=== PATIENT | female | born 1985 | race Caucasian/White ===

== ENCOUNTER 2022-09-15 13:31 | Emergency (ER) | payer MEDICAID, SELFPAY ==
[2022-09-15 13:37] VITALS: BP 120/83; PULSE 81; RESP 18; TEMP 35.6; O2SAT 98; BMI 106.7
--- NOTE | 2022-09-15 13:53 | CRLHL7_ITS ---
For Patients: As a result of the Century Cures Act, medical imaging exams and procedure reports are released immediately into your electronic medical record. You may view this report before your referring provider. If you have questions, please contact your health care provider. Indication: Pain Technique: Three views Comparison: None Findings/Impression: Bones: Alignment is normal. No fractures or bone lesions. Joint spaces: Unremarkable. Soft tissues: Enthesopathic spurring distal Achilles tendon. Dictated by Fred Maya MD @ 09/15/2022 3:48:54 PM (Electronically Signed)
--- NOTE | 2022-09-15 14:08 | ED_ITS ---
HPI - General Adult General Chief complaint: Extremity Pain/Injury, Lower Stated complaint: L. foot injury Time Seen by Provider: 09/15/22 13:35 History of Present Illness HPI narrative: Patient is a 37-year-old female who works at [email or web address], she is on her foot a lot and has had foot pain for few weeks. Describes it in the left arch and into her calcaneal area. She denies trauma or injury other than just repetitive weight-bearing. She has had no fevers chills, no trauma to the foot. But has immense discomfort. She has tried some or prescription medications but they have not helped her pain. She has had no history of gout or other issues. She is on gabapentin and methocarbamol. She did take oxycodone and try that and did not seem to help a whole lot. No swelling or warmth erythema. Related Data Home Medications Medication Instructions Recorded Confirmed gabapentin 300 mg capsule 300 mg PO TID 09/15/22 09/15/22 methocarbamol 500 mg tablet 500 mg PO TID 09/15/22 09/15/22 oxycodone 10 mg tablet 10 mg PO TID 09/15/22 09/15/22 Previous Rx's Medication Instructions Recorded ketorolac 10 mg tablet 10 mg PO Q8H PRN pain #10 tabs 09/15/22 Allergies Allergy/AdvReac Type Severity Reaction Status Date / Time No Known Drug Allergies Allergy Verified 09/15/22 13:42 Review of Systems Status of ROS: Reports: 6 or more systems reviewed and unremarkable except as noted in History and below PFSH PFS Social History Smoking Status: Former smoker How often do you have a drink containing alcohol: never AUDIT-C Alcohol total score: 0 Non-prescribed substance use: denies use Exam Narrative: Exam Narrative: Objective: Vital signs unremarkable in general patient apparent distress Left foot exam shows tenderness over the arch of the foot there is no bony tenderness, no warmth, no erythema. Distal CMS intact. Const: Vital Signs, click to edit/add: Vital Signs - 24 hr 09/15/22 13:37 Temperature 96.0 F L Pulse Rate [Left P ulse Oximeter] 81 Respiratory Rate 18 Blood Pressure [Le ft Upper Arm] 120/83 Pulse Oximetry 98 Oxygen Delivery Me thod Room Air Course Vital Signs Vital signs: Initial Vital Signs Temperature 96.0 F L 09/15/22 13:37 Temperature Source Temporal Artery Scan 09/15/22 13:37 Pulse Rate 81 09/15/22 13:37 Pulse Rhythm Regular 09/15/22 13:37 Pulse Strength 3+ Normal 09/15/22 13:37 Respiratory Rate 18 09/15/22 13:37 Blood Pressure 120/83 09/15/22 13:37 Blood Pressure Mean 95 09/15/22 13:37 Blood Pressure Position Sitting 09/15/22 13:37 Pulse Oximetry 98 09/15/22 13:37 Oxygen Delivery Method Room Air 09/15/22 13:37 Vital Signs Temperature 96.0 F L 09/15/22 13:37 Pulse Rate 81 09/15/22 13:37 Respiratory Rate 18 09/15/22 13:37 Blood Pressure 120/83 09/15/22 13:37 Pulse Oximetry 98 09/15/22 13:37 Oxygen Delivery Method Room Air 09/15/22 13:37 Temperature 96.0 F L 09/15/22 13:37 Pulse Rate 81 09/15/22 13:37 Respiratory Rate 18 09/15/22 13:37 Blood Pressure 120/83 09/15/22 13:37 Pulse Oximetry 98 09/15/22 13:37 Oxygen Delivery Method Room Air 09/15/22 13:37 Medical Decision Making MDM Narrative Medical decision making narrative: [age] year white male with persistent arch and heel pain on the left foot for several weeks, it has been worse recently. I would recommend the following at this time would recommend Ariadne be off work for 5 days, and then see primary care about return to work activity and plan Would recommend Toradol 10 mg t.i.d. p.r.n. over the next several days, then may switch to ibuprofen or Naprosyn or Aleve, would also recommend icing the areas that are tender 5 minutes 5 times a day for the next several days. Would recommend nonweightbearing will get crutches. Note for off work written. Return sooner as needed before primary care follow-up. Will also check an x-ray and uric acid to make sure there is no gout and make sure there is no abnormality on x-ray. Addendum 2:47 p.m.: Patient has normal lab studies, at negative x-ray by my read. Crutches off work, follow up with primary care, Toradol as needed, return as needed. Lab Data Labs: Lab Results 09/15/22 Range/Units 14:20 WBC 6.06 (4.50-11.00) K/uL RBC 5.16 (4.00-5.20) m/uL Hgb 13.4 (12.0-16.0) gm/dL Hct 41.3 (33.0-51.0) % MCV 80 (80-100) fL MCH 26 (26-34) pg MCHC 32 (32-36) gm/dL RDW Coeff of Jackeline 12.7 (11.5-15.5) % Plt Count 301 (140-440) K/uL Neut % (Auto) 58.8 (42.0-72.0) % Lymph % (Auto) 34.0 (20-44) % Baxter % (Auto) 5.8 (0.0-11.0) % Eos % (Auto) 0.7 (0.0-7.0) % Baso % (Auto) 0.5 (0.0-3.0) % Neut # (Auto) 3.57 (1.7-7.0) K/uL Lymph # (Auto) 2.06 (0.90-2.90) K/uL Baxter # (Auto) 0.40 (0.00-0.90) K/UL Eos # (Auto) 0.04 (0.00-0.50) K/uL Baso # (Auto) 0.03 (0.00-0.30) K/uL Abs Immat Gran (auto) 0.01 (0.00-0.30) K/uL Imm/Tot Granulo (auto) 0.2 % Uric Acid 6.5 (2.2-8.4) mg/dL C-Reactive Protein 0.8 (0.5-1.0) mg/dL Discharge Plan Discharge Clinical Impression: Acute foot pain Patient Disposition: Home, Self-Care Condition: Stable Additional Instructions: off work x 5 days until rechck with primary. toradol as needed, crutches and non weight bearing, ice to area 5 minutes 5 x day, return to ed as needed. Activity Level: Light activity Discharge Diet: Regular Prescriptions: New ketorolac 10 mg tablet 10 mg PO Q8H PRN (Reason: pain) Qty: 10 0RF No Action oxycodone 10 mg tablet 10 mg PO TID methocarbamol 500 mg tablet 500 mg PO TID gabapentin 300 mg capsule 300 mg PO TID Stand Alone Forms: MyHealth Info Instructions
[2022-09-15] MEDS: KETOROLAC 10 MG TABLET PO (14:14)
[2022-09-15] MEDS: predniSONE 10 MG TABLET 50 MG PO (14:15)
--- OUTSIDE RECORDS SUMMARY | 2022-09-15 14:19 | XMS_ITS | Continuity of Care Document ---
Author Name Unknown Organization [facility] Address [address] [place] [id number] Care Team Providers Care Wedding Decorator Name Role Phone [facility] Unavailable Unav ailable Procedures Procedure Date INJ FORAMEN EPIDURAL L/S MAJOR JOINT OR BURSA INJ WITH ULTRASOUND INJ FORAMEN EPIDURAL L/S INJ FORAMEN EPIDURAL L/S INJ FORAMEN EPIDURAL L/S INJ FORAMEN EPIDURAL L/S Advance Directives Directive Yes / No Effective Date File Name No Information Encounters Encounter Description Practice Location Reason(s) For Visit Diagnoses Date Provider Providers Copied on Encounter [facility], [address] [place] [address], [id number], [facility] No Information [facility]. [address] [place] [address], [id number], [place]. tel:[phone] Referring Provider: Joanie Tobar, [address] [place] [address], [id number]. tel:[phone] [facility], [address] [place] [address], [id number], [facility] No Information [facility]. [address] [place] [address], [id number], [place]. tel:[phone] Referring Provider: Joanie Tobar, [address] [place] [address], [id number]. tel:[phone] [facility], [address] [place] [address], [id number], [facility] No Information [facility]. [address] [place] [address] [place], [id number], . tel:[phone] Referring Provider: Joanie Tobar, [address] [place] [address], [id number]. tel:[phone] [place] [address], [address] [place] [address], [id number], [facility] No Information [facility]. [address] [place], [place] [address]Jos [place], [id number], . tel:[phone] Referring Provider: Joanie Tobar, [address] [place] [address], [id number]. tel:[phone] [facility], [address] [place] [address], [id number], [facility] No Information [facility]. [address] [place], [place] [address] [place], [id number], [place]. tel:[phone] Referring Provider: Arlene Cantrell, [address] [place] [address], [id number]. tel:[phone] [facility], [address] [place] [address], [id number], [facility] No Information [facility]. [address] [place], [place] [address] [place], [id number], [place]. tel:[phone] Referring Provider: Arlene Cantrell, [address] [place] [address], [id number]. tel:[phone] Family History Family Member Type Diagnosis Age At Onset No Information Payers Payer name Insurance type Covered republican ID Alvina ridley(s) [facility] [id number] Social History Type Description Quantity Date Captured Comments Sex Female Smoking Status No Information Chief Complaint And Reason For Visit No Information Reason For Referral Reason For Referral No Information History Of Present Illness Encounter Date Complaint History Of Prese nt Illness No Information Functional Status Date Functional Assessmen t No Information Instructions Date Instruction Additional Infor mation No Information Assessments Type Assessment Date No Information Patient Care Teams Name Effective Dates (start - stop) Status Members No Information
--- OUTSIDE RECORDS SUMMARY | 2022-09-15 14:19 | XMS_ITS | Continuity of Care Document ---
Author Name Unknown Organization [facility] enter Address [address] [place] [phone] Phone Care Team Providers Care Layout Inspector Name Role Phone [facility] Unavailable Unava ilable Procedures Procedure Date MAJOR JOINT OR BURSA INJ WITH ULTRASOUND Advance Directives Directive Yes / No Effective Date File Name No Information Encounters Encounter Description Practice Location Reason(s) For Visit Diagnoses Date Provider Providers Copied on Encounter [facility], [address] [place] [address], [id number], [place] tel:[phone] [facility] No Information 2 [facility]. [address] [place] [address], [id number], [place]. tel:[phone] Referring Provider: Arlene Cantrell, [address] [facility] [place], [address] . tel:[phone] Family History Family Member Type Diagnosis Age At Onset No Information Payers Payer name Insurance type Covered constitution party ID Authoramya khai(s) monie [facility] [id number] Social History Type Description Quantity Date Captured [...]
[2022-09-15 14:26] LABS: Basophils Absolute Auto 0.03 K/uL (0.00-0.30); Basophils Percent Auto 0.5 % (0.0-3.0); Eosinophils Absolute Auto 0.04 K/uL (0.00-0.50); Eosinophils Percent Auto 0.7 % (0.0-7.0); Hematocrit 41.3 % (33.0-51.0); Hemoglobin* 13.4 gm/dL (12.0-16.0); Immature Granulocytes Abs Auto 0.01 K/uL (0.00-0.30); Immature Granulocytes Pct Auto 0.2 %; Lymphocytes Absolute Auto 2.06 K/uL (0.90-2.90); Mean Corpuscular HGB Conc 32 gm/dL (32-36); Mean Corpuscular Hemoglobin 26 pg (26-34); Mean Corpuscular Volume 80 fL (80-100); Monocytes Percent Auto 5.8 % (0.0-11.0); Neutrophils Absolute Auto 3.57 K/uL (1.7-7.0); Neutrophils Percent Auto 58.8 % (42.0-72.0); Platelet Count* 301 K/uL (140-440); RDW Coefficient of Variation % 12.7 % (11.5-15.5); Red Blood Count 5.16 m/uL (4.00-5.20); White Blood Count* 6.06 K/uL (4.50-11.00)
[2022-09-15 14:33] LABS: Slide Review Reflex No
[2022-09-15 14:42] LABS: Uric Acid* 6.5 mg/dL (2.2-8.4)
[2022-09-15 14:45] LABS: C Reactive Protein* 0.8 mg/dL (0.5-1.0)
== END 2022-09-15 14:58 | disposition home or self-care (01) ==
LOC: ED 14:18
PROVIDERS: Emergency Provider Family Medicine
DX: M79.672 Pain in left foot (principal)
CPT/HCPCS: 36415; 73630; 84550; 85025; 86140; 99283; 99284; A9270; J7512

== ENCOUNTER 2022-12-07 12:56 | Emergency (ER) | payer MEDICAID, SELFPAY ==
[2022-12-07 13:40] VITALS: BP 104/82; PULSE 91; RESP 16; TEMP 36.3; O2SAT 98; BMI 43.0
--- NOTE | 2022-12-07 18:14 | ED.GENADULT ---
HPI - General Adult General Time Seen by Provider: 18:14 Date Seen: 12/07/22 Chief complaint: Post Op Complication Stated complaint: heart racing, dizzy, shaky Time Seen by Provider: 12/07/22 18:14 Source: patient and RN notes reviewed Mode of arrival: ambulatory Limitations: no limitations History of Present Illness HPI narrative: Patient is a 37yo female that had a gastric sleeve done at [place] on 11/15/22, discharged on the . She states that she has been throwing up, unable to take much for PO since the procedure. She unfortunately did wait over 5 hours to be seen due to the volume and acuity in the ED. She has had no fever. She states that she is seen at a pain clinic and threw up her oxycodone earlier, she does ask if there is any way to give her some IV medicine. She states that yesterday she had one dark paste-like stool, nothing since then. No significant abdominal pain. When she was in triage, she did c/o feeling heart racing, dizzy, shakey. She thinks that she has lost about 30lbs already. 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 She reportedly did call her surgeon but hasn't heard back. She notes that she may need to get her pills switched to liquid, review with her that I do agree with that but should come from her clinic or surgeon if deemed necessary. Related Data Home Medications Medication Instructions Recorded Confirmed gabapentin 300 mg capsule 300 mg PO TID 09/15/22 12/07/22 methocarbamol 500 mg tablet 500 mg PO TID 09/15/22 12/07/22 oxycodone 10 mg tablet 10 mg PO TID 09/15/22 12/07/22 ondansetron 4 mg disintegrating PO 12/07/22 tablet polyethylene glycol 3350 17 17 g PO DAILY 12/07/22 12/07/22 gram/dose oral powder sennosides 8.6 mg-docusate sodium tab PO 12/07/22 50 mg tablet (Senexon-S) Previous Rx's Medication Instructions Recorded ketorolac 10 mg tablet 10 mg PO Q8H PRN pain #10 tabs 09/15/22 Allergies Allergy/AdvReac Type Severity Reaction Status Date / Time No Known Drug Allergies Allergy Verified 12/07/22 13:39 Review of Systems Status of ROS: Reports: 6 or more systems reviewed and unremarkable except as noted in History and below [facility] Social History Smoking Status: Former smoker Do you use any of these nicotine containing products: None Second hand tobacco smoke exposure: No How often do you have a drink containing alcohol: never AUDIT-C Alcohol total score: 0 Non-prescribed substance use: denies use service: No Exam Const: Vital Signs, click to edit/add: Vital Signs - 24 hr 12/07/22 13:40 12/07/22 18:22 Temperature 97.4 F L Pulse Rate [Pulse Oximeter] 91 Respiratory Rate 16 Blood Pressure [Ri ght Forearm] 104/82 Pulse Oximetry 98 98 Oxygen Delivery Me thod Room Air Tired but alert 37yo female seen in exam 8. Sclera clear, face atraumatic. Lips look slightly dry. Speech normal. Lungs clear to auscultation bilaterally, no tachypnea, no increased work of breathing. CV regular rate and rhythm, no murmur, normal S1 and S2. Abdomen is obese but soft, nontender, no masses noted, port sites are well-healing and without any evidence of infection, certainly no redness or swelling around them, no drainage. Documenting provider has reviewed patient's vital signs: yes Course Course ED Course: Reviewed with her that we will establish an IV, start IV fluids. Will give her 15mg IV toradol and 4mg IV morphine for pain management. We will check CMP and CBC for basic labs. She could have dehydration, electrolyte disturbances. She is close enough from surgery and in the ED setting that other labs like B vitiamins (send out for us anyway) are not appropriate today. Will certainly look at her hemoglobin, watch here for any evidence of GI bleeding. Consider stool hemoccult if needed. Reevaluation(s) Time of Reevaluation #1: 19:54 Reevaluation #1: Patient is re-evaluated, has almost completed 1 L of normal saline. She is complaining of the IV site bothering her. I feel no infiltration but she is complaining of the IV stinging burning through the course into her arm. We reviewed that her potassium his mildly low at 3. I had ordered IV replacement of potassium as well as a small amount of oral. Given that the IV site is bothering her, do not think she is going to tolerate IV potassium. We will have her drink the 25 mEq of the effervescent potassium. She wanted to know if her iron was low. I reviewed with her that I did not drawn iron level, that is not something we would do out of the ER. Her hemoglobin is quite stable at 15.3. I doubt she has any significant GI bleeding as she complained of the dark stool yesterday and has had nothing since. Her hemoglobin is 15.3, I do realize that she is somewhat dehydrated based on labs but there is no clinical evidence of any ongoing GI bleeding. Vital Signs Vital signs: Initial Vital Signs Temperature 97.4 F L 12/07/22 13:40 Temperature Source Temporal Artery Scan 12/07/22 13:40 Pulse Rate 91 12/07/22 13:40 Pulse Rhythm Regular 12/07/22 13:40 Pulse Strength 3+ Normal 12/07/22 13:40 Respiratory Rate 16 12/07/22 13:40 Blood Pressure 104/82 12/07/22 13:40 Blood Pressure Mean 89 12/07/22 13:40 Blood Pressure Position Sitting 12/07/22 13:40 Pulse Oximetry 98 12/07/22 13:40 Oxygen Delivery Method Room Air 12/07/22 13:40 Vital Signs Temperature 97.4 F L 12/07/22 13:40 Pulse Rate 91 12/07/22 13:40 Respiratory Rate 16 12/07/22 13:40 Blood Pressure 104/82 12/07/22 13:40 Pulse Oximetry 98 12/07/22 13:40 Oxygen Delivery Method Room Air 12/07/22 13:40 Temperature 97.4 F L 12/07/22 13:40 Pulse Rate 91 12/07/22 13:40 Respiratory Rate 16 12/07/22 13:40 Blood Pressure 104/82 12/07/22 13:40 Pulse Oximetry 98 12/07/22 18:22 Oxygen Delivery Method Room Air 12/07/22 13:40 Medical Decision Making Lab Data Lab results reviewed: Yes I reviewed the patient's lab results Labs: Lab Results 12/07/22 Range/Units 18:54 WBC 5.97 (4.50-11.00) K/uL RBC 5.86 H (4.00-5.20) m/uL Hgb 15.3 (12.0-16.0) gm/dL Hct 46.4 (33.0-51.0) % MCV 79 L (80-100) fL MCH 26 (26-34) pg MCHC 33 (32-36) gm/dL RDW Coeff of Jackeline 13.8 (11.5-15.5) % Plt Count 269 (140-440) K/uL Neut % (Auto) 59.5 (42.0-72.0) % Lymph % (Auto) 32.8 (20-44) % Avery % (Auto) 6.7 (0.0-11.0) % Eos % (Auto) 0.5 (0.0-7.0) % Baso % (Auto) 0.5 (0.0-3.0) % Neut # (Auto) 3.55 (1.7-7.0) K/uL Lymph # (Auto) 1.96 (0.90-2.90) K/uL Avery # (Auto) 0.40 (0.00-0.90) K/UL Eos # (Auto) 0.03 (0.00-0.50) K/uL Baso # (Auto) 0.03 (0.00-0.30) K/uL Abs Immat Gran (auto) 0.00 (0.00-0.30) K/uL Imm/Tot Granulo (auto) 0.0 % Sodium 140 (135-149) mmol/L Potassium 3.0 L (3.6-5.1) mmol/L Chloride 106 (96-114) mmol/L Carbon Dioxide 16 L (20-32) mmol/L Anion Gap 18 H (7-15) mEq/L BUN 6 (5-24) mg/dL Creatinine 0.6 (0.5-1.5) mg/dL Estimated Creat Clear 110.86 Estimated GFR 118 ml/min Glucose 74 (60-115) mg/dL Lactate 0.9 (0.5-1.9) mmol/L Calcium 9.3 (8.4-10.6) mg/dL Total Bilirubin 0.8 (0.1-1.5) mg/dL AST 90 H (12-35) U/L ALT 118 H (4-35) U/L Alkaline Phosphatase 98 (40-150) U/L Total Protein 8.7 H (6.0-8.3) g/dL Albumin 4.9 (3.3-5.0) g/dL Critical Care Time Critical Care Time Critical Care Time: No Discharge Plan Discharge Clinical Impression: Acute dehydration, S/P gastric sleeve procedure, Acute hypokalemia Patient Disposition: Home, Self-Care Condition: Stable Instructions: Dehydration (ED), Potassium Content of Foods List (ED), Hypokalemia (ED) Additional Instructions: Need to contact your surgeon or your primary care provider for re-evaluation regarding the low potassium an your issue getting her medications in. You very well may need med switched to liquid format. Need to take frequent small sips of liquids, like 1 tsp every 5-10 minutes while awake to help stay hydrated. Drink the other 25 mEq of effervescent potassium tomorrow morning. Your potassium and other appropriate lab status post gastric sleeve should be rechecked per your surgeons recommendations. Continue to follow any postoperative recommendations your surgeon outlined. Prescriptions: No Action sennosides-docusate sodium [Senexon-S] 8.6-50 mg tablet PO polyethylene glycol 3350 17 gram/dose powder 17 g PO DAILY ondansetron 4 mg tablet,disintegrating PO oxycodone 10 mg tablet 10 mg PO TID methocarbamol 500 mg tablet 500 mg PO TID gabapentin 300 mg capsule 300 mg PO TID ketorolac 10 mg tablet 10 mg PO Q8H PRN (Reason: pain) Qty: 10 0RF Follow Up/Referrals: Provider,Not a Local [Primary Care Provider] - Stand Alone Forms: [employer] Info Instructions
[2022-12-07 18:22] VITALS: O2SAT 98
--- OUTSIDE RECORDS SUMMARY | 2022-12-07 18:43 | XMS_ITS | Continuity of Care Document ---
Author Name Unknown Organization [facility] Address [address] [facility] [facility] [place] [address] Phone Care Team Providers [employer] Producer Name Role Phone Kristina Cage DNP Unavailable Unavailable Allergies, Adverse Reactions, Alerts Substance Reaction Status Criticality No Known Allergies Active No Inform ation Medications Medication Instructions Dosage Effective Dates (start - stop) Status Comments oxycodone-acetami nophen 10 mg-325 mg tablet take 1 po TID prn pain - Active GABAPENTIN 300MG CAPSULES TAKE 2 CAPSULES BY MOUTH THREE TIMES DAILY - Active albuterol sulfate HFA 90 mcg/actuation aerosol inhaler Inhale 2 Puffs by mouth every 4 hours if needed for Shortness Of Breath (Cough). - Active gabapentin 100 mg capsule Take 2 Capsules (200 mg) by mouth 2 times daily. - Active omeprazole 20 mg tablet,delayed release Take 1 Tablet (20 mg) by mouth once daily if needed for GI Upset. - Active SUMATRIPTAN (unknown strength) spray 1 spray by intranasal route once; if headache returns, dose may be repeated once after 2 hours, not to exceed 40 mg per day Not Available - Active oxycodone-acetami nophen 10 mg-325 mg tablet take 1 po TID prn pain - No Longer Active Procedures Procedure Date OFFICE VISIT, EST TELEMEDICINE Drug Urine Toxology With Chromatography Drug test def 8-14 classes OFFICE/OUTPATIENT VISIT, EST OFFICE VISIT, EST TELEMEDICINE INJ FORAMEN EPIDURAL L/S LEFT OFFICE VISIT, EST TELEMEDICINE OFFICE VISIT, EST TELEMEDICINE RT Major Joint Or Bursa Inj With Ultraso und OFFICE/OUTPATIENT VISIT, EST OFFICE VISIT, EST TELEMEDICINE Foll-up eval q3mo opiod tx OFFICE VISIT, EST TELEMEDICINE Drug Urine Toxology With Chromatography Drug test def 8-14 classes Foll-up eval q3mo opiod tx OFFICE/OUTPATIENT VISIT, EST Foll-up eval q3mo opiod tx OFFICE VISIT, EST TELEMEDICINE OFFICE VISIT, EST TELEMEDICINE Foll-up eval q3mo opiod tx Foll-up eval q3mo opiod tx OFFICE VISIT, EST TELEMEDICINE Foll-up eval q3mo opiod tx OFFICE/OUTPATIENT VISIT, EST Foll-up eval q3mo opiod tx OFFICE VISIT, EST TELEMEDICINE INJ FORAMEN EPIDURAL L/S LEFT Foll-up eval q3mo opiod tx OFFICE VISIT, EST TELEMEDICINE Foll-up eval q3mo opiod tx OFFICE/OUTPATIENT VISIT, EST Drug Urine Toxology With Chromatography Drug test def 8-14 classes No Charge For Visit Per Prov Foll-up eval q3mo opiod tx PREVENTIVE COUNSELING, INDIV OFFICE VISIT, EST TELEMEDICINE Foll-up eval q3mo opiod tx OFFICE VISIT, EST TELEMEDICINE RT Major Joint Or Bursa Inj With Ultraso und Foll-up eval q3mo opiod tx OFFICE VISIT, EST TELEMEDICINE OFFICE/OUTPATIENT VISIT, EST Foll-up eval q3mo opiod tx Foll-up eval q3mo opiod tx OFFICE VISIT, EST TELEMEDICINE Foll-up eval q3mo opiod tx OFFICE VISIT, EST TELEMEDICINE Foll-up eval q3mo opiod tx OFFICE VISIT, EST TELEMEDICINE Drug Urine Toxology With Chromatography Drug test def 8-14 classes Foll-up eval q3mo opiod tx OFFICE VISIT, EST TELEMEDICINE Foll-up eval q3mo opiod tx OFFICE VISIT, EST TELEMEDICINE 20 INJ FORAMEN EPIDURAL L/S LEFT 0 Foll-up eval q3mo opiod tx OFFICE VISIT, EST TELEMEDICINE 20 Foll-up eval q3mo opiod tx OFFICE VISIT, EST TELEMEDICINE 20 Foll-up eval q3mo opiod tx OFFICE VISIT, EST TELEMEDICINE 20 Foll-up eval q3mo opiod tx OFFICE VISIT, EST TELEMEDICINE 20 Foll-up eval q3mo opiod tx OFFICE VISIT, EST TELEMEDICINE 20 INJ FORAMEN EPIDURAL L/S LEFT 0 Drug test def 15-21 classes Drug Urine Toxology With Chromatography OFFICE/OUTPATIENT VISIT, EST Foll-up eval q3mo opiod tx OFFICE/OUTPATIENT VISIT, EST Foll-up eval q3mo opiod tx INJ FORAMEN EPIDURAL L/S LEFT 9 OFFICE/OUTPATIENT VISIT, EST OFFICE/OUTPATIENT VISIT, EST Drug test def 22+ classes Drug Urine Toxology With Chromatography OFFICE/OUTPATIENT VISIT, EST OFFICE/OUTPATIENT VISIT, EST OFFICE/OUTPATIENT VISIT, EST INJ FORAMEN EPIDURAL L/S LEFT 9 FLUOROGUIDE FOR SPINE INJECTION 019 OFFICE/OUTPATIENT VISIT, EST Drug test def 22+ classes Drug Urine Toxology With Chromatography OFFICE/OUTPATIENT VISIT, EST OFFICE/OUTPATIENT VISIT, EST OFFICE/OUTPATIENT VISIT, EST OFFICE/OUTPATIENT VISIT, EST Drug test def 22+ classes Drug Urine Toxology With Chromatography Drug test def 22+ classes Drug Urine Toxology With Chromatography OFFICE/OUTPATIENT VISIT, EST OFFICE/OUTPATIENT VISIT, EST INJ FORAMEN EPIDURAL L/S LEFT 8 FLUOROGUIDE FOR SPINE INJECTION 018 OFFICE/OUTPATIENT VISIT, EST OFFICE/OUTPATIENT VISIT, EST OFFICE/OUTPATIENT VISIT, EST OFFICE/OUTPATIENT VISIT, EST OFFICE/OUTPATIENT VISIT, EST INJ FORAMEN EPIDURAL L/S LEFT 7 Surgical trays FLUOROGUIDE FOR SPINE INJECT Omnipaque 240 50ml Omnipaque 240 Per 50ml Lidocaine injection Dexamethasone sodium phos OFFICE/OUTPATIENT VISIT, EST OFFICE/OUTPATIENT VISIT, EST OFFICE/OUTPATIENT VISIT, EST OFFICE/OUTPATIENT VISIT, EST INJ FORAMEN EPIDURAL L/S LEFT 6 Surgical trays FLUOROGUIDE FOR SPINE INJECT Lidocaine injection Dexamethasone sodium phos Omnipaque 240 50ml Omnipaque 240 Per 50ml OFFICE/OUTPATIENT VISIT, EST OFFICE/OUTPATIENT VISIT, EST OFFICE/OUTPATIENT VISIT, EST OFFICE/OUTPATIENT VISIT, EST INJ FORAMEN EPIDURAL L/S LEFT 5 Surgical trays FLUOROGUIDE FOR SPINE INJECT Dexamethasone sodium phos Lidocaine injection Omnipaque 240 50ml Omnipaque 240 Per 50ml OFFICE/OUTPATIENT VISIT, EST OFFICE/OUTPATIENT VISIT, EST OFFICE/OUTPATIENT VISIT, EST INJ FORAMEN EPIDURAL L/S LEFT 5 Surgical trays FLUOROGUIDE FOR SPINE INJECT Lidocaine injection Dexamethasone sodium phos Omnipaque 240 50ml Omnipaque 240 Per 50ml OFFICE/OUTPATIENT VISIT, EST OFFICE/OUTPATIENT VISIT, EST OFFICE/OUTPATIENT VISIT, EST OFFICE/OUTPATIENT VISIT, EST OFFICE/OUTPATIENT VISIT, EST OFFICE/OUTPATIENT VISIT, EST INJ FORAMEN EPIDURAL L/S LEFT 4 Surgical trays FLUOROGUIDE FOR SPINE INJECT Dexamethasone sodium phos Lidocaine injection Omnipaque 240 50ml Omnipaque 240 Per 50ml OFFICE/OUTPATIENT VISIT, EST OFFICE/OUTPATIENT VISIT, EST OFFICE/OUTPATIENT VISIT, EST OFFICE/OUTPATIENT VISIT, EST OFFICE/OUTPATIENT VISIT, EST OFFICE/OUTPATIENT VISIT, EST OFFICE/OUTPATIENT VISIT, EST OFFICE/OUTPATIENT VISIT, EST INJ FORAMEN EPIDURAL L/S LEFT 4 Surgical trays FLUOROGUIDE FOR SPINE INJECT Lidocaine injection Dexamethasone sodium phos Omnipaque 240 50ml Omnipaque 240 Per 50ml OFFICE/OUTPATIENT VISIT, EST INJ FORAMEN EPIDURAL L/S LEFT 4 Surgical trays FLUOROGUIDE FOR SPINE INJECT Lidocaine injection Dexamethasone sodium phos Omnipaque 240 50ml Omnipaque 240 Per 50ml OFFICE/OUTPATIENT VISIT, EST OFFICE/OUTPATIENT VISIT, EST OFFICE/OUTPATIENT VISIT, EST OFFICE/OUTPATIENT VISIT, EST OFFICE CONSULTATION Advance Directives Directive Yes / No Effective Date File Name No Information Encounters Encounter Description Practice Location Reason(s) For Visit Diagnoses Date Provider Providers Copied on Encounter OFFICE VISIT, EST TELEMEDICINE [facility], [address], [place], [id number] , [place] tel: [phone] [facility] [place] Back Pain (chief complaint) DepressionAnxiety Chronic migraine without aura, intractable, without status migrainosusCarpal tunnel syndrome, right upper limbCarpal tunnel syndrome, left upper limbPain in right kneePain in left kneeOther intervertebral disc degeneration, lumbar regionRadiculopat hy, lumbar regionCervicalgia terminal gauger supervisor (current) use of opiate analgesicOther chronic pain Oct-0 3 Niles Kristina. [address], [place], [id number] , [place]. tel: [phone] [facility], [address] [facility] [place], [id number] , [place] tel: [phone] [facility] [place] No Information Oct-0 3 Niles Kristina. [address] [place], [id number] , [place]. tel: [phone] OFFICE/OUTPAT IENT VISIT, EST [facility], [address] [facility] [place], [id number] , [place] tel: [phone] [facility] [place] Back Pain (chief complaint) DepressionAnxiety Chronic migraine without aura, intractable, without status migrainosusCarpal tunnel syndrome, right upper limbCarpal tunnel syndrome, left upper limbPain in right kneePain in left kneeOther intervertebral disc degeneration, lumbar regionRadiculopat hy, lumbar regionCervicalgia terminal gauger supervisor (current) use of opiate analgesicEncounte r for therapeutic drug level monitoring Sep-0 3 Niles Acevedo. [address] [place] [place], [id number] , [place]. tel: [phone] Referring Provider: [address] [facility], [address]. tel:[phone] OFFICE VISIT, EST TELEMEDICINE [facility], [address] [place] [address] [place], [id number] , [place] tel: [phone] [facility] [place] Back Pain (chief complaint) Pain in left kneeDepressionAnx ietyChronic migraine without aura, intractable, without status migrainosusCarpal tunnel syndrome, right upper limbCarpal tunnel syndrome, left upper limbPain in right kneeOther intervertebral disc degeneration, lumbar regionRadiculopat hy, lumbar regionCervicalgia long-term (current) use of opiate analgesic Sep- 3 Niles Acevedo. [address] [facility] Nan [place], [id number] , [place]. tel: [phone] [facility], [address] [place] [address] [place], [id number] , [place] tel: [phone] [facility] Radiculopathy, lumbar region 3 Ekaterina Nair. [address] [facility] Nan [place], [id number] , [place]. tel:[phone] Referring Provider: Kristina Cage, [address] [place] [address] [place], [address] . 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 [address] [place], [id number] , [place]. tel:[phone] Referring Provider: Kam Almeida, [address], [address] . tel:[phone] OFFICE VISIT, EST TELEMEDICINE [facility], [address] [place], [id number] , [place] tel:[phone] [facility] [place] Back Pain (chief complaint) Chronic migraine without aura, intractable, without status migrainosusRadicu lopathy, lumbar regionDepressionA nxietyCarpal tunnel syndrome, right upper limbCarpal tunnel syndrome, left upper limbPain in left kneePain in right kneeOther intervertebral disc degeneration, lumbar regionLong term (current) use of opiate analgesicCervical claire Sam-0 3 Niles Acevedo. [address] [place], [id number] , [place]. tel:[phone] Referring Provider: Kam Almeida, [address] [place], [address] . tel:[phone] [facility], [address] [place], [id number] , [place] [phone] [facility] Pain in right knee June-0 3 Tobar Joanie. [address] [place], [id number] , [place]. tel:[phone] Referring Provider: Kristina Cage, [address] [place], [address] . 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 [address] [place], [id number] , [place]. tel: [phone] Referring Provider: Kam Almeida, [address] [place], [place] [address]Jos [place], [address] . tel:[phone] [facility], [address] [place], [place] [address]Ad[place], [id number] , [place] tel: [phone] [facility] [place] No Information 3 Aron Humphrey. [address] [place], [id number] , [place]. tel: [phone] OFFICE VISIT, EST TELEMEDICINE [facility], [address] [place] [place], [id number] , [place] tel: [phone] [facility] [place] Back Pain (chief complaint) DepressionAnxiety Chronic migraine without aura, intractable, without status migrainosusCarpal tunnel syndrome, right upper limbCarpal tunnel syndrome, left upper limbPain in left kneePain in right kneeOther intervertebral disc degeneration, lumbar regionRadiculopat hy, lumbar regionCervicalgia long-term (current) use of opiate analgesic 3 Niles Kristina. [address] [place], [id number] , [place]. tel:[phone] Referring Provider: Kam Almeida, [address] [place], [place] [address]ms [place], [address] . tel:[phone] [facility], [address] [place], [place] [address]Ad[place], [id number] , [place] tel: [phone] [facility] [place] No Information 3 Niles Kristina. [address] [place], [id number] , [place]. tel: [phone] OFFICE VISIT, EST TELEMEDICINE [facility], [address] [place], [id number] , [place] tel: [phone] [facility] [place] low back pain (chief complaint) Other intervertebral disc degeneration, lumbar regionRadiculopat hy, lumbar regionCervicalgia Chronic migraine without aura, intractable, without status migrainosusCarpal tunnel syndrome, right upper limbCarpal tunnel syndrome, left upper limbPain in right kneePain in left kneeDepressionAnx ietyLong term (current) use of opiate analgesic Apr-0 3 Niles Acevedo. [address] [place], [id number] , [place]. tel: [phone] [facility], [address] [place], [place] [address]Ad[place], [id number] , [place] tel: [phone] [facility] [place] No Information 3 Niles Acevedo. [address] [place], [id number] , [place]. tel: [phone] OFFICE/OUTPAT IENT VISIT, [facility], [address] [place], [place] [address]Ad[place], [id number] , [place] tel: [phone] [facility] Back Pain (chief complaint) Other intervertebral disc degeneration, lumbar regionMyalgia, other siteDepressionAnx ietyChronic migraine without aura, intractable, without status migrainosusCarpal tunnel syndrome, right upper limbCarpal tunnel syndrome, left upper limbPain in left kneePain in right kneeRadiculopathy , lumbar regionLong term (current) use of opiate analgesicCervical giaEncounter for therapeutic drug level monitoring 3 Niles Acevedo. [facility] Nan [place], [id number] , [place]. tel: [phone] Referring Provider: Kristina Cage, [address] [place], [address] . tel:[phone] OFFICE VISIT, EST [facility], [address] [place], [id number] , [place] tel: [phone] [facility] [place] Back Pain (chief complaint) DepressionAnxiety Chronic migraine without aura, intractable, without status migrainosusRadicu lopathy, lumbar regionOther intervertebral disc degeneration, lumbar regionCarpal tunnel syndrome, right upper limbMyalgia, other siteCarpal tunnel syndrome, left upper limbPain in left kneePain in right kneeLong term (current) use of opiate analgesic 3 Niles Kristina. [address] [place], [id number] , [place]. tel: [phone] OFFICE VISIT, [facility], [address] [place] [address] Adri[place], [id number] , [place] tel: [phone] [facility] [place] Widespread pain (chief complaint) DepressionAnxiety Chronic migraine without aura, intractable, without status migrainosusCarpal tunnel syndrome, right upper limbCarpal tunnel syndrome, left upper limbPain in right kneePain in left kneeOther intervertebral disc degeneration, lumbar regionLong term (current) use of opiate analgesic 2 Aron Humphrey. [address] [place] [address] Nan [place], [id number] , [place]. tel: [phone] OFFICE VISIT, [facility], [address] [place], [place] [address]Ad[place], [id number] , [place] tel: [phone] [facility] [place] Back Pain (chief complaint) DepressionAnxiety Chronic migraine without aura, intractable, without status migrainosusCarpal tunnel syndrome, right upper limbCarpal tunnel syndrome, left upper limbPain in left kneePain in right kneeOther intervertebral disc degeneration, lumbar regionRadiculopat hy, lumbar regionMyalgia, other siteLong term (current) use of opiate analgesic 2 Niles Acevedo. [address] [place], [id number] , [place]. tel: [phone] Referring Provider: Kam Almeida, [address] [place] [address] [place], [address] . tel:[phone] OFFICE/OUTPAT IENT VISIT, [facility], [address] [facility] [place], [id number] , [place] tel: [phone] [facility] [place] Back Pain (chief complaint) Carpal tunnel syndrome, right upper limbCarpal tunnel syndrome, left upper limbPain in left kneePain in right kneeOther intervertebral disc degeneration, lumbar regionMyalgia, other siteDepressionAnx ietyChronic migraine without aura, intractable, without status migrainosusLong term (current) use of opiate analgesicRadiculo joon, lumbar region 2 Niles Kristina. [address] [place], [id number] , [place]. tel: [phone] Referring Provider: Kam Almeida, [address] [place] [address] [place], [address] . tel:[phone] [facility], [address] [place] [address] Adrianna [place], [id number] , [place] tel: [phone] [facility] [place] No Information 2 Aron Humphrey. [address] [place] [address] Nan [place], [id number] , [place]. tel: [phone] OFFICE VISIT, [facility] TELEMEDICINE [facility], [address] [place], [id number] , [place] tel: [phone] [facility] [place] Back Pain (chief complaint) Pain in right kneeDepressionAnx ietyChronic migraine without aura, intractable, without status migrainosusCarpal tunnel syndrome, right upper limbCarpal tunnel syndrome, left upper limbPain in left kneeOther intervertebral disc degeneration, lumbar regionRadiculopat hy, lumbar regionLong term (current) use of opiate analgesicMyalgia, other site Sep-0 2 Niles Kristina. [address] [place], [id number] , [place]. tel: [phone] Referring Provider: Kam Almeida, [address] [place] [address] Arm[place]a [place], [address] . tel:[phone] [facility], [address] [place] [address] Adri[place], [id number] , [place] tel: [phone] [facility] Radiculopathy, lumbar region 2 Ekaterina Nair. [address] [place], [id number] , [place]. tel:[phone] Referring Provider: Kristina Cage, [address] [place], [address] . tel:[phone] OFFICE VISIT, [facility] TELEMEDICINE [facility], [address] [place], [id number] , [place] tel: [phone] [facility] [place] Back Pain (chief complaint) Chronic migraine without aura, intractable, without status migrainosusDepres sionAnxietyCarpal tunnel syndrome, left upper limbCarpal tunnel syndrome, right upper limbPain in right kneePain in left kneeOther intervertebral disc degeneration, lumbar regionRadiculopat hy, lumbar regionLong term (current) use of opiate analgesic 2 Niles Acevedo. [address] [place], [id number] , [place]. tel:[phone] Referring Provider: Kam Almeida, [address] [place], [place] [address]ms Roberts [place], [address] . tel:[phone] OFFICE/OUTPAT IENT VISIT, [facility], [address] [place], [id number] , [place] tel: [phone] [facility] [place] Back Pain (chief complaint) Pain in left kneeDepressionAnx ietyChronic migraine without aura, intractable, without status migrainosusCarpal tunnel syndrome, left upper limbCarpal tunnel syndrome, right upper limbPain in right kneeOther intervertebral disc degeneration, lumbar regionRadiculopat hy, lumbar regionLong term (current) use of opiate analgesicEncounte r for therapeutic drug level monitoring 2 Niles Acevedo. [address] [place], [id number] , [place]. tel:[phone] Referring Provider: Kam Almeida, [address] [place], [place] [address]ms [place] Jessica[place], [address] . tel:[phone] [facility], [address] [place] [address] Adri[place], [id number] , [place] tel: [phone] [facility] [place] No Information 2 Niles Kristina. [address] [place], [id number] , [place]. tel: [phone] Referring Provider: Kam Almeida, [address] [place] [address] [place], [address] . tel:[phone] [facility], [address] [place] [address] [place], [id number] , [place] tel: [phone] [facility] [place] No Information 2 Niles Kristina. [facility] [place], [id number] , [place]. tel: [phone] Referring Provider: Kam Almeida, [address] [place] [address] [place], [address] . tel:[phone] PREVENTIVE COUNSELING, INDIV [facility], [address] [place], [place] [address]Ad[place], [id number] , [place] tel: [phone] [facility] Back Pain (chief complaint) Chronic migraine without aura, intractable, without status migrainosusAnxiet yDepressionCarpal tunnel syndrome, left upper limbCarpal tunnel syndrome, right upper limbPain in left kneePain in right kneeOther intervertebral disc degeneration, lumbar regionRadiculopat hy, lumbar regionLong term (current) use of opiate analgesicEncounte r for screening, unspecified 2 Niles Kristina. [address] [place] [address] Nan [place], [id number] , [place]. tel: [phone] OFFICE VISIT, EST TELEMEDICINE [facility], [address] [place], [place] [address]Ad[place]anna [place], [id number] , [place] tel: [phone] [facility] Back Pain (chief complaint) DepressionAnxiety Chronic migraine without aura, intractable, without status migrainosusCarpal tunnel syndrome, left upper limbCarpal tunnel syndrome, right upper limbPain in right kneePain in left kneeOther intervertebral disc degeneration, lumbar regionRadiculopat hy, lumbar regionLong term (current) use of opiate analgesic 2 Niles Acevedo. [address] [place], [id number] , [place]. tel: [phone] [facility], [address] [place], [id number] , [place] tel: [phone] [facility] Pain in right knee 2 Óscar Jacobs. [address] [place], [id number] , [place]. tel: [phone] Referring Provider: Kristina Cage, [address] [place], [address] . tel:[phone] OFFICE VISIT, [facility], [address] [place], [id number] , [place] tel: [phone] [facility] [place] Back Pain (chief complaint) DepressionAnxiety Chronic migraine without aura, intractable, without status migrainosusCarpal tunnel syndrome, left upper limbCarpal tunnel syndrome, right upper limbPain in left kneePain in right kneeOther intervertebral disc degeneration, lumbar regionRadiculopat hy, lumbar regionLong term (current) use of opiate analgesic 2 Niles Acevedo. [address] [place], [id number] , [place]. tel: [phone] OFFICE/OUTPAT IENT VISIT, [facility], [address] [place], [id number] , [place] tel: [phone] [facility] Back Pain (chief complaint) Chronic migraine without aura, intractable, without status migrainosusOther intervertebral disc degeneration, lumbar regionCarpal tunnel syndrome, left upper limbCarpal tunnel syndrome, right upper limbPain in left kneePain in right kneeAnxietyDepres sionLong term (current) use of opiate analgesicRadiculo joon, lumbar regionEncounter for therapeutic drug level monitoring 2 Niles Acevedo. [address] [place], [id number] , [place]. tel:[phone] Referring Provider: Kam Almeida, [address] [place], [place] [address], [address] . tel:[phone] OFFICE VISIT, [facility], [address] [place], [id number] , [place] tel: [phone] [facility] [place] Back Pain (chief complaint) Chronic migraine without aura, intractable, without status migrainosusOther intervertebral disc degeneration, lumbar regionCarpal tunnel syndrome, left upper limbCarpal tunnel syndrome, right upper limbPain in left kneePain in right kneeAnxietyDepres sionLong term (current) use of opiate analgesic Mar-3 0-202 1 Niles Kristina. [address] [place], [id number] , [place]. tel:[phone] Referring Provider: Kam Almeida, [address] [place] [address] Jos Roberts [place], [address] . tel:[phone] OFFICE VISIT, [facility], [address] [place], [place] [address]Adrianna [place], [id number] , [place] tel: [phone] [facility] [place] Back Pain (chief complaint) Chronic migraine without aura, intractable, without status migrainosusOther intervertebral disc degeneration, lumbar regionCarpal tunnel syndrome, left upper limbCarpal tunnel syndrome, right upper limbPain in left kneePain in right kneeAnxietyDepres sionLong term (current) use of opiate analgesic Mar-0 5- 1 Niles Kristina. [address] [place], [id number] , [place]. tel:[phone] Referring Provider: Kam Almeida, [address] [place] [address] [place], [address] . tel:[phone] OFFICE VISIT, [facility], [address] [place], [place] [address]Adrianna [place], [id number] , [place] tel: [phone] [facility] [place] Back Pain (chief complaint) Chronic migraine without aura, intractable, without status migrainosusOther intervertebral disc degeneration, lumbar regionCarpal tunnel syndrome, left upper limbCarpal tunnel syndrome, right upper limbPain in left kneePain in right kneeAnxietyDepres sionLong term (current) use of opiate analgesic 1 Niles Kristina. [address] [place], [id number] , [place]. tel: [phone] Referring Provider: Kam Almeida, [address] [place], [place] [address]ms Roberts N[place]hang [place], [address] . tel:[phone] [facility], [address] [place], [place] [address]Adrianna [place], [id number] , [place] tel: [phone] [facility] No Information 1 Niles Kristina. [address] [place], [place] [address]Nan [place], [id number] , [place]. tel: [phone] Referring Provider: Kam Almeida, [address] [place], [place] [address]ms Roberts [place]hang [place], [address] . tel:[phone] OFFICE VISIT, EST TELEMEDICINE [facility], [address] [place], [place] [address]Adrianna [place], [id number] , [place] tel: [phone] [facility] Back Pain (chief complaint) Chronic migraine without aura, intractable, without status migrainosusOther intervertebral disc degeneration, lumbar regionCarpal tunnel syndrome, left upper limbCarpal tunnel syndrome, right upper limbPain in left kneePain in right kneeAnxietyDepres sionLong term (current) use of opiate analgesic 1 Niles Kristina. [facility] [address] [place], [id number] , [place]. tel: [phone] Referring Provider: Kam Almeida, [address] [place], [place] [address]ms [place], [address] . tel:[phone] OFFICE VISIT, EST TELEMEDICINE [facility], [address] [place], [place] [address]Adrianna [place], [id number] , [place] tel: [phone] [facility] Back Pain (chief complaint) Chronic migraine without aura, intractable, without status migrainosusOther intervertebral disc degeneration, lumbar regionCarpal tunnel syndrome, left upper limbCarpal tunnel syndrome, right upper limbPain in left kneePain in right kneeAnxietyDepres sionLong term (current) use of opiate analgesic Dec-0 8- 0 Niles Kristina. [address] [place], [id number] , [place]. tel: [phone] Referring Provider: Kam Almeida, [address] [place], [place] [address], [address] . tel:[phone] [facility], [address] [place], [place] [address]Ad[place]anna [place], [id number] , [place] tel: [phone] [facility] Other intervertebral disc degeneration, lumbar region Nov- 0- 0 Ekaterina Nair. [address] [place] [place], [id number] , [place]. tel: [phone] Referring Provider: Joanie Tobar, [address] [place] [address] [place], [address] . tel:[phone] OFFICE VISIT, EST TELEMEDICINE [facility], [address] [place], [place] [address]Adrianna [place], [id number] , [place] tel: [phone] [facility] [place] Back Pain (chief complaint) Chronic migraine without aura, intractable, without status migrainosusOther intervertebral disc degeneration, lumbar regionCarpal tunnel syndrome, left upper limbCarpal tunnel syndrome, right upper limbPain in left kneePain in right kneeAnxietyDepres sionLong term (current) use of opiate analgesic Nov-0 9 0 Niles Kristina. [address] [place], [place] [address]Nan [place], [id number] , [place]. tel: [phone] Referring Provider: Kam Almeida, [address] [place] [address] [place], [address] . tel:[phone] OFFICE VISIT, EST TELEMEDICINE [facility], [address] [place], [place] [address]Adrianna [place], [id number] , [place] tel: [phone] [facility] [place] Back Pain (chief complaint) Chronic migraine without aura, intractable, without status migrainosusOther intervertebral disc degeneration, lumbar regionCarpal tunnel syndrome, left upper limbCarpal tunnel syndrome, right upper limbPain in left kneePain in right kneeAnxietyDepres sionLong term (current) use of opiate analgesic Oct-0 0 Niles Kristina. [address] [place], [id number] , [place]. tel: [phone] Referring Provider: Kam Almeida, [address] [place], [address] . tel:[phone] OFFICE VISIT, EST TELEMEDICINE [facility], [address] [place], [id number] , [place] tel: [phone] [facility] [place] Back Pain (chief complaint) Other intervertebral disc degeneration, lumbar regionCarpal tunnel syndrome, left upper limbCarpal tunnel syndrome, right upper limbPain in left kneePain in right kneeAnxietyDepres sionLong term (current) use of opiate analgesic Sep-0 0 Niles Kristina. [address] [place], [id number] , [place]. tel: [phone] Referring Provider: Kam Almeida, [address] [place], [address] . tel:[phone] OFFICE VISIT, EST TELEMEDICINE [facility], [address] [place], [id number] , [place] tel: [phone] [facility] [place] Back Pain (chief complaint) Other intervertebral disc degeneration, lumbar regionCarpal tunnel syndrome, left upper limbCarpal tunnel syndrome, right upper limbLong term (current) use of opiate analgesicPain in left kneePain in right kneeAnxietyDepres isiah Sep- 0 Niles Kristina. [address] [place], [id number] , [place]. tel: [phone] Referring Provider: Kam Almeida, [address] [place], [address] . tel:[phone] OFFICE VISIT, EST TELEMEDICINE [facility], [address] [place], [id number] , [place] tel: [phone] [facility] Back Pain (chief complaint) Other intervertebral disc degeneration, lumbar regionCarpal tunnel syndrome, left upper limbCarpal tunnel syndrome, right upper limbLong term (current) use of opiate analgesic May- 0 Niles Kristina. [address] [place], [id number] , [place]. tel: [phone] Referring Provider: Kam Almeida, [address] [place] [address] [place], [address] . tel:[phone] [facility], [address] [place] [address] [address] [place], [id number] , [place] tel: [phone] [facility] [place] Other intervertebral disc degeneration, lumbar region Mar- 0 Óscar Jacobs. [address] [place], [id number] , [place]. tel: [phone] OFFICE/OUTPAT IENT VISIT, [facility], [address] [place], [place] [address]Adrianna [place], [id number] , [place] tel: [phone] [facility] Back Pain (chief complaint) Carpal tunnel syndrome, left upper limbCarpal tunnel syndrome, right upper limbPain in left kneeOther intervertebral disc degeneration, lumbar regionLong term (current) use of opiate analgesic 0 Niles Kristina. [facility] [address] [place], [id number] , [place]. tel: [phone] OFFICE/OUTPAT IENT VISIT, [facility], [address] [place], [place] [address]Adrianna [place], [id number] , [place] tel: [phone] [facility] [place] Back Pain (chief complaint) long-term (current) use of opiate analgesicOther intervertebral disc degeneration, lumbar regionPain in left kneeCarpal tunnel syndrome, left upper limbCarpal tunnel syndrome, right upper limb Dec- 9 Niles Kristina. [facility] [address] [place], [id number] , [place]. tel: [phone] [facility], [address] [place], [place] [address]Adrianna [place], [id number] , [place] tel: [phone] [facility] [place] Other intervertebral disc degeneration, lumbar region 9 Óscar Jacobs. [address] [place], [id number] , [place]. tel: [phone] OFFICE/OUTPAT IENT VISIT, [facility], [address] [place], [id number] , [place] tel: [phone] [facility] [place] Back Pain (chief complaint) terminal gauger supervisor (current) use of opiate analgesicOther intervertebral disc degeneration, lumbar regionPain in left knee 9 Niles Kristina. [address] [place], [id number] , [place]. tel: [phone] [facility], [address] [place], [id number] , [place] tel: [phone] [facility] [place] Other intervertebral disc degeneration, lumbar region 9 Niles Kristina. [address] [place], [id number] , [place]. tel: [phone] OFFICE/OUTPAT IENT VISIT, [facility], [address] [place], [id number] , [place] tel: [phone] [facility] [place] Back Pain (chief complaint) Other intervertebral disc degeneration, lumbar regionLow back painPain in left kneeLong term (current) use of opiate analgesic 0 9 Niles Kristina. [address] [place], [id number] , [place]. tel: [phone] OFFICE/OUTPAT IENT VISIT, [facility], [address] [place], [id number] , [place] tel: [phone] [facility] [place] Back Pain (chief complaint) Pain in left kneeOther intervertebral disc degeneration, lumbar regionLow back painLong term (current) use of opiate analgesic Aug- 2- 9 Niles Kristina. [address] [place], [id number] , [place]. tel: [phone] OFFICE/OUTPAT IENT VISIT, [facility], [address] [place], [id number] , [place] tel: [phone] [facility] [place] Back Pain (chief complaint) terminal gauger supervisor (current) use of opiate analgesicPain in left kneeOther intervertebral disc degeneration, lumbar regionLow back pain May-0 3-201 9 Niles Kristina. [address] [place], [id number] , [place]. tel: [phone] OFFICE/OUTPAT IENT VISIT, EST [facility], [address] [place], [id number] , [place] tel: [phone] [facility] [place] Back Pain (chief complaint) Low back painOther intervertebral disc degeneration, lumbar regionLong term (current) use of opiate analgesicPain in left knee Apr-0 4-[address] [facility], [address] [facility] [address], [place], [address], [place]. tel: [phone] [facility], [address] [place] [address] [address] [place], [id number] , [place] tel: [phone] [facility] Other intervertebral disc degeneration, lumbosacral region Mar-0 8-201 9 Óscar Jacobs. [address] [place], [id number] , [place]. tel: [phone] OFFICE/OUTPAT IENT VISIT, EST [facility], [address] [place], [id number] , [place] tel: [phone] [facility] [place] low back pain (chief complaint) Other intervertebral disc degeneration, lumbar regionLow back painLong term (current) use of opiate analgesicEncounte r for therapeutic drug level monitoringOther intervertebral disc degeneration, lumbosacral region Feb-0 4-201 9 Niles Kristina. [address] [place], [id number] , [place]. tel: [phone] OFFICE/OUTPAT IENT VISIT, EST [facility], [address] [place], [id number] , [place] tel: [phone] [facility] [place] low back pain (chief complaint) Other intervertebral disc degeneration, lumbar regionLow back pain Dec-0 6-201 8 Niles Kristina. [address] [place], [id number] , [place]. tel: [phone] OFFICE/OUTPAT IENT VISIT, [facility], [address] [place], [id number] , [place] tel: [phone] [facility] [place] low back pain (chief complaint) Other intervertebral disc degeneration, lumbar regionOther intervertebral disc degeneration, lumbosacral regionLow back pain Oct-0 5-201 8 Niles Kristina. [address] [place], [id number] , [place]. tel: [phone] OFFICE/OUTPAT IENT VISIT, [facility], [address] [place], [id number] , [place] tel: [phone] [facility] [place] low back pain (chief complaint) Other intervertebral disc degeneration, lumbosacral regionCervicalgia Low back painPain in left knee Sep-0 8 Niles Kristina. [address] [place], [address] , [place]. tel: [phone] OFFICE/OUTPAT IENT VISIT, [facility], [address] [place], [id number] , [place] tel: [phone] [facility] [place] low back pain (chief complaint) Other intervertebral disc degeneration, lumbosacral regionCervicalgia Low back pain Sam-0 8-201 8 Niles Kristina. [address] [place], [id number] , [place]. tel: [phone] OFFICE/OUTPAT IENT VISIT, [facility], [address] [place], [id number] , [place] tel: [phone] [facility] [place] low back pain (chief complaint) CervicalgiaLow back painOther intervertebral disc degeneration, lumbosacral regionLong term (current) use of opiate analgesic Apr-0 9-201 8 Niles Kristina. [address] [place], [id number] , [place]. tel: [phone] OFFICE/OUTPAT IENT VISIT, [facility], [address] [place], [id number] , [place] tel: [phone] [facility] [place] low back pain (chief complaint) CervicalgiaLow back painOther intervertebral disc degeneration, lumbosacral region 8 Niles Kristina. [address] [place], [id number] , [place]. tel: [phone] [facility], [address] [place], [id number] , [place] tel: [phone] [facility] Other intervertebral disc degeneration, lumbosacral region 8 Tobar Joanie. [address] [place], [id number] , [place]. tel: [phone] OFFICE/OUTPAT IENT VISIT, [facility], [address] [place], [id number] , [place] tel: [phone] [facility] [place] low back pain (chief complaint) CervicalgiaLow back painOther intervertebral disc degeneration, lumbosacral region 7 Niles Kristina. [address] [place], [id number] , [place]. tel: [phone] OFFICE/OUTPAT IENT VISIT, [facility], [address] [place], [id number] , [place] tel: [phone] [facility] [place] low back pain (chief complaint) CervicalgiaLow back painOther intervertebral disc degeneration, lumbosacral region 7 Niles Kristina. [address] [place], [id number] , [place]. tel: [phone] OFFICE/OUTPAT IENT VISIT, [facility], [address] [place], [id number] , [place] tel: [phone] [facility] [place] low back pain (chief complaint) Low back painCervicalgia 7 Niles Kristina. [address] [place], [id number] , [place]. tel: [phone] OFFICE/OUTPAT IENT VISIT, [facility], [address] [place], [id number] , [place] tel: [phone] [facility] [place] low back pain (chief complaint) CervicalgiaLow back pain 7 Niles Kristina. [address] [place], [address]608217 , [place]. tel: [phone] OFFICE/OUTPAT IENT VISIT, [facility], [address] [place], [id number] , [place] tel: [phone] [facility] [place] low back pain (chief complaint) Low back painCervicalgia 7 Niles Kristina. [address] [place], [id number] , [place]. tel: [phone] [facility], [address] [place], [id number] , [place] tel: [phone] [facility] [place] Other intervertebral disc degeneration, lumbosacral region 7 Óscar Jacobs. [address] [place], [id number] , [place]. tel: [phone] OFFICE/OUTPAT IENT VISIT, [facility], [address] [place], 240946736 , [place] tel: [phone] [facility] [place] low back pain (chief complaint) Low back painCervicalgia 7 Niles Kristina. [address], [place], [address]90 , [place]. tel: [phone] OFFICE/OUTPAT IENT VISIT, [facility], [address] [place], [id number] , [place] tel: [phone] [facility] [place] low back pain (chief complaint) Low back painCervicalgiaOt her intervertebral disc degeneration, lumbosacral region 6 Niles Kristina. [address], [place], [address] , [place]. tel: [phone] OFFICE/OUTPAT IENT VISIT, [facility], [address] [place], [id number] , [place] tel: [phone] [facility] [place] low back pain (chief complaint) CervicalgiaLow back painOther intervertebral disc degeneration, lumbosacral region Sep-2 0-201 6 Niles Kristina. [address] [place], [id number] , [place]. tel: [phone] OFFICE/OUTPAT IENT VISIT, [facility], [address] [place], [id number] , [place] tel: [phone] [facility] [place] low back pain (chief complaint) Other intervertebral disc degeneration, lumbosacral region Aug- 6 Niles Kristina. [address] [place], [id number] , [place]. tel: [phone] [facility], [address] [place], [id number] , [place] tel: [phone] [facility] [place] Other intervertebral disc degeneration, lumbosacral region 6 Will Kam. [address] [place], [id number] , [place]. tel: [phone] OFFICE/OUTPAT IENT VISIT, [facility], [address] [place], [id number] , [place] tel: [phone] [facility] [place] low back pain (chief complaint) Low back painCervicalgia 6 Niles Kristina. [address] [place], [id number] , [place]. tel: [phone] OFFICE/OUTPAT IENT VISIT, [facility], [address] [place], [id number] , [place] tel: [phone] [facility] [place] low back pain (chief complaint) Low back painCervicalgiaOt her intervertebral disc degeneration, lumbosacral region Apr- 6 Niles Kristina. [address] [place], 6732[address]276 , [place]. tel: [phone] OFFICE/OUTPAT IENT VISIT, [facility], [address] [place], 275676445 , [place] tel: [phone] [facility] [place] low back pain (chief complaint) Low back painOther intervertebral disc degeneration, lumbosacral regionCervicalgia 6 Niles Kristina. [address] [place], [id number] , [place]. tel: [phone] OFFICE/OUTPAT IENT VISIT, [facility], [address] [place], [id number] , [place] tel: [phone] [facility] low back pain (chief complaint) Low back painCervicalgia 5 Niles Kristina. [address] [place], [id number] , [place]. tel: [phone] [facility], [address] [place], [place] [address]Adrianna [place], [id number] , [place] tel: [phone] [facility] Other intervertebral disc degeneration, lumbosacral region 5 Óscar Jacobs. [address] [place], [id number] , [place]. tel: [phone] OFFICE/OUTPAT IENT VISIT, [facility], [address] [place], [id number] , [place] tel: [phone] [facility]) Degeneration of lumbar or lumbosacral intervertebral discPain in joint involving ankle and foot Sep-2 5 Niles Kristina. [address] [place], 359771259 , [place]. tel: [phone] OFFICE/OUTPAT IENT VISIT, [facility], [address] [place], [id number] , [place] tel: [phone] [facility] [place] low back pain (chief complaint) CervicalgiaDispla cement of lumbar intervertebral disc without myelopathyLumbago Pain in joint involving lower leg 5 Niles Kristina. [address] [place], 906781505 , [place]. tel: [phone] OFFICE/OUTPAT IENT VISIT, [facility], [address] [place], [id number] , [place] tel: [phone] [facility] [place] low back pain (chief complaint) CervicalgiaDispla cement of lumbar intervertebral disc without myelopathyLumbago Pain in joint involving lower leg 5 Niles Kristina. [address] [place], 214989511 , [place]. tel: [phone] [facility], [address] [place], 233378624 , [place] tel: [phone] [facility] [place] Displacement of lumbar intervertebral disc without myelopathy 5 Ekaterina Joanie. [address] [place], 420093953 , [place]. tel: [phone] OFFICE/OUTPAT IENT VISIT, [facility], [address] [place], [id number] , [place] tel: [phone] [facility] [place] low back pain (chief complaint) CervicalgiaLumbag oPain in joint involving lower legSciatica Due To Displacement Of Lumbar Disc 5 Niles Kristina. [address] [place], [id number] , [place]. tel: [phone] OFFICE/OUTPAT IENT VISIT, [facility], [address] [place], [id number] , [place] tel: [phone] [facility] [place] Back Pain (chief complaint) CervicalgiaLumbag oPain in joint involving lower legSciatica Due To Displacement Of Lumbar Disc 5 Niles Kristina. [address], [place], 0877[address]906 , [place]. tel: [phone] OFFICE/OUTPAT IENT VISIT, EST [facility], [address] [place], [id number] , [place] tel: [phone] [facility] [place] low back pain (chief complaint) CervicalgiaLumbag oPain in joint involving lower legSciatica Due To Displacement Of Lumbar Disc Apr-0 2- 5 Niles Kristina. [address] [place], [id number] , [place]. tel: [phone] OFFICE/OUTPAT IENT VISIT, EST [facility], [address] [place], [id number] , [place] tel: [phone] [facility] [place] low back pain (chief complaint) CervicalgiaLumbag oSciatica Due To Displacement Of Lumbar DiscPain in joint involving lower leg 8 5 Niles Kristina. [address] [place], 588373967 , [place]. tel: [phone] OFFICE/OUTPAT IENT VISIT, EST [facility], [address] [place], [id number] , [place] tel: [phone] [facility] [place] Back Pain (chief complaint) CervicalgiaLumbag oSciatica Due To Displacement Of Lumbar Disc 4 Niles Kristina. [address] [place], [id number] , [place]. tel: [phone] OFFICE/OUTPAT IENT VISIT, EST [facility], [address] [place], [id number] , [place] tel: [phone] [facility] [place] back and neck pain (chief complaint) Sciatica Due To Displacement Of Lumbar DiscLumbagoCervic algiaSciatica Due To Displacement Of Lumbar Disc Nov- 3-201 4 Niles Kristina. [address] [place], [id number] , [place]. tel: [phone] [facility], [address] [place] [place], [id number] , [place] tel: [phone] [facility] [place] Displacement of lumbar intervertebral disc without myelopathy 0 2-201 4 Tobar Joanie. [address] [place], [id number] , [place]. tel: [phone] OFFICE/OUTPAT IENT VISIT, [facility], [address] [place], [id number] , [place] tel: [phone] [facility] [place] back and neck pain (chief complaint) LumbagoCervicalgi aSciatica Due To Displacement Of Lumbar Disc Sep- 4 Niles Kristina. [address] [place], [id number] , [place]. tel: [phone] OFFICE/OUTPAT IENT VISIT, [facility], [facility] [address] [place], [id number] , [place] tel: [phone] [facility] [place] back and neck pain (chief complaint) LumbagoCervicalgi aSciatica Due To Displacement Of Lumbar Disc Sep- 4 Aron Humphrey. [address] [place], [id number] , [place]. tel: [phone] OFFICE/OUTPAT IENT VISIT, [facility], [address] [place], [id number] , [place] tel: [phone] [facility] [place] back and neck pain (chief complaint) LumbagoCervicalgi aSciatica Due To Displacement Of Lumbar Disc Aug- 4 Niles Kristina. [address] [place] [place], [id number] , [place]. tel: [phone] OFFICE/OUTPAT IENT VISIT, [facility], [address] [place], [id number] , [place] tel: [phone] [facility] [place] back and neck pain (chief complaint) LumbagoCervicalgi aSciatica Due To Displacement Of Lumbar Disc Sam- 0 4 Niles Kristina. [address] [place], [id number] , [place]. tel: [phone] OFFICE/OUTPAT IENT VISIT, [facility], [facility] [address] [place], [id number] , [place] tel: [phone] [facility] [place] back and neck pain (chief complaint) LumbagoSciatica Due To Displacement Of Lumbar DiscCervicalgiaCe rvicalgia 0- 4 Will Kam. [address] [place], [id number] , [place]. tel: [phone] OFFICE/OUTPAT IENT VISIT, [facility], [address] [place] [place], [id number] , [place] tel: [phone] [facility] [place] back and neck pain (chief complaint) CervicalgiaSciati ca Due To Displacement Of Lumbar DiscLumbago 4 Will Kam. [address] [place], [id number] , [place]. tel: [phone] OFFICE/OUTPAT IENT VISIT, [facility], [facility] [address] [place], [id number] , [place] tel: [phone] [facility] [place] back and neck pain (chief complaint) Sciatica Due To Displacement Of Lumbar DiscCervicalgia May- 4 Niles Kristina. [address] [place], [id number] , [place]. tel: [phone] OFFICE/OUTPAT IENT VISIT, [facility], [address] [place] [place], [id number] , [place] tel: [phone] [facility] [place] back and neck pain (chief complaint) Sciatica Due To Displacement Of Lumbar DiscCervicalgia Apr-2 0- 4 Niles Kristina. [address] [place], [id number] , [place]. tel: [phone] [facility], [address] [place] [place], [id number] , [place] tel: [phone] [facility] [place] Sciatica Due To Displacement Of Lumbar Disc Mar-0 3-201 4 Will Kam. [address] [place], [place], [id number] , [place]. tel: [phone] OFFICE/OUTPAT IENT VISIT, [facility], [address] [place] [place], [id number] , [place] tel: [phone] [facility] [place] back and neck pain (chief complaint) Sciatica Due To Displacement Of Lumbar DiscLumbagoCervic algia 4 [facility]. [address] [place], [id number] , [place]. tel: [phone] [facility], [address] [place] [place], [id number] , [place] tel: [phone] [facility] [place] Sciatica Due To Displacement Of Lumbar Disc Mar- 4 Will Kam. [address] [place], [id number] , [place]. tel: [phone] OFFICE/OUTPAT IENT VISIT, [facility], [address] [place] [place], [id number] , [place] tel: [phone] [facility] [place] back and neck pain (chief complaint) LumbagoCervicalgi a 4 [facility]. [address] [place], [id number] , [place]. tel: [phone] OFFICE/OUTPAT IENT VISIT, [facility], [address] [place], [id number] , [place] tel: [phone] [facility] [place] back and neck pain (chief complaint) LumbagoCervicalgi a 3 Will Kam. [address] [place], [id number] , [place]. tel: [phone] OFFICE/OUTPAT IENT VISIT, [facility], [address] [place], [id number] , [place] tel: [phone] [facility] [place] back and neck pain (chief complaint) LumbagoCervicalgi a 3 Will Kam. [address], [place], [id number] , [place]. tel: [phone] OFFICE/OUTPAT IENT VISIT, [facility], [address] [place] [place], [id number] , [place] tel: [phone] [facility] [place] back and neck pain (chief complaint) LumbagoCervicalgi a 3 Will Kam. [address] [place], [id number] , [place]. tel: [phone] OFFICE CONSULTATION [facility], [address] [place], [id number] , [place] tel: [phone] [facility] [place] back and neck pain (chief complaint) LumbagoCervicalgi aDepressionLumbag oCervicalgia 3 Will Kam. [address] [place] [place], [id number] , [place]. tel: [phone] Family History Family Member Type Diagnosis Age At Onset Mother Problem (finding) back and ankle pain Payers Payer name Insurance type Covered democrat ID Alvina ridley(s) monie [employer] [id number] Social History Type Description Quantity Date Captured Comments Alcohol Use Details No Caffeine Use Details Unknown Tobacco Use Status Current non-smoker Smoking Status Never smoker Sex Female Chief Complaint And Reason For Visit From encounter dated '11/16/2022 08:04'. Back Pain (chief complaint). Description: Severity level is 7. Duration: chronic. The problem is stable. Location of pain is lower back. Reason For Referral Reason For Referral No Information Plan Of Treatment Date Type Action Status Goal Height. Due on d ue Goal Weight. Due on d ue Goal UDT. Due on due Goal Update Social Hi story. Due on due Goal PHQ-9. Due on du e Goal Order Annual PT. Due on due Goal Medication Recon ciliation. Due on due Goal HPV. Due on due Goal Creatinine. Due on due Goal MANAGER SALES SUPPORT Scanned. Due on due Goal OARS. Due on due Goal Review Allergy L ist. Due on due Goal ORTHOTIC/PROSTHETIC PRACTITIONER Paperwork. Due on due Goal AST (SGOT). Due on due Goal Tobacco Use. Due on due Goal Unhealthy drug u se screening. Due on due Goal ALT (SGPT). Due on due Goal Hepatitis C scre ening. Due on due Goal Order Annual PT. Due on due Goal PHQ-9. Due on du e Goal Height. Due on d ue Goal ORTHOTIC/PROSTHETIC PRACTITIONER Paperwork. Due on due Goal HPV. Due on due Goal Unhealthy drug u se screening. Due on due Goal UDT. Due on due Goal OARS. Due on due Goal Medication Recon ciliation. Due on due Goal Weight. Due on d ue Goal Review Allergy L ist. Due on due Goal Update Social Hi story. Due on due Goal MANAGER SALES SUPPORT Scanned. Due on due Goal AST (SGOT). Due on due Goal Tobacco Use. Due on due Goal Hepatitis C scre ening. Due on due Goal Creatinine. Due on due Goal ALT (SGPT). Due on due Goal ALT (SGPT). Due on due Goal AST (SGOT). Due on due Goal OARS. Due on due Goal MANAGER SALES SUPPORT Scanned. Due on due Goal Tobacco Use. Due on due Goal Creatinine. Due on due Goal ORTHOTIC/PROSTHETIC PRACTITIONER Paperwork. Due on due Goal UDT. Due on due Goal Order Annual PT. Due on due Goal Review Allergy L ist. Due on due Goal Unhealthy drug u se screening. Due on due Goal Update Social Hi story. Due on due Goal Hepatitis C scre ening. Due on due Goal Weight. Due on d ue Goal Medication Recon ciliation. Due on due Goal HPV. Due on due Goal Height. Due on d ue Goal PHQ-9. Due on du e Goal ALT (SGPT). Due on due Goal Weight. Due on d ue Goal UDT. Due on due Goal AST (SGOT). Due on due Goal Tobacco Use. Due on due Goal ORTHOTIC/PROSTHETIC PRACTITIONER Paperwork. Due on due Goal PHQ-9. Due on du e Goal HPV. Due on due Goal Medication Recon ciliation. Due on due Goal Update Social Hi story. Due on due Goal OARS. Due on due Goal Hepatitis C scre ening. Due on due Goal Unhealthy drug u se screening. Due on due Goal Review Allergy L ist. Due on due Goal Height. Due on d ue Goal Order Annual PT. Due on due Goal MANAGER SALES SUPPORT Scanned. Due on due Goal Creatinine. Due on due Goal Height. Due on d ue Goal OARS. Due on due Goal ALT (SGPT). Due on due Goal Creatinine. Due on due Goal PHQ-9. Due on du e Goal Order Annual PT. Due on due Goal Tobacco Use. Due on due Goal ORTHOTIC/PROSTHETIC PRACTITIONER Paperwork. Due on due Goal Unhealthy drug u se screening. Due on due Goal HPV. Due on due Goal Hepatitis C scre ening. Due on due Goal Review Allergy L ist. Due on due Goal AST (SGOT). Due on due Goal MANAGER SALES SUPPORT Scanned. Due on due Goal Weight. Due on d ue Goal UDT. Due on due Goal Update Social Hi story. Due on due Goal Medication Recon ciliation. Due on due Goal AST (SGOT). Due on due Goal UDT. Due on due Goal ALT (SGPT). Due on due Goal Creatinine. Due on due Goal ORTHOTIC/PROSTHETIC PRACTITIONER Paperwork. Due on due Goal Order Annual PT. Due on due Goal OARS. Due on due Goal MANAGER SALES SUPPORT Scanned. Due on due Goal Update Social Hi story. Due on due Goal Review Allergy L ist. Due on due Goal Unhealthy drug u se screening. Due on due Goal Height. Due on d ue Goal Hepatitis C scre ening. Due on due Goal Medication Recon ciliation. Due on due Goal HPV. Due on due Goal PHQ-9. Due on du e Goal Weight. Due on d ue Goal Tobacco Use. Due on due Goal ALT (SGPT). Due on due Goal MANAGER SALES SUPPORT Scanned. Due on due Goal Creatinine. Due on due Goal Update Social Hi story. Due on due Goal ORTHOTIC/PROSTHETIC PRACTITIONER Paperwork. Due on due Goal Order Annual PT. Due on due Goal Tobacco Use. Due on due Goal PHQ-9. Due on du e Goal Hepatitis C scre ening. Due on due Goal Review Allergy L ist. Due on due Goal UDT. Due on due Goal OARS. Due on due Goal Weight. Due on d ue Goal Unhealthy drug u se screening. Due on due Goal Medication Recon ciliation. Due on due Goal HPV. Due on due Goal Height. Due on d ue Goal AST (SGOT). Due on due Goal UDT. Due on due Goal Review Allergy L ist. Due on due Goal OARS. Due on due Goal MANAGER SALES SUPPORT Scanned. Due on due Goal Order Annual PT. Due on due Goal PHQ-9. Due on du e Goal Unhealthy drug u se screening. Due on due Goal ORTHOTIC/PROSTHETIC PRACTITIONER Paperwork. Due on due Goal AST (SGOT). Due on due Goal Tobacco Use. Due on due Goal ALT (SGPT). Due on due Goal Creatinine. Due on due Goal Weight. Due on d ue Goal Medication Recon ciliation. Due on due Goal Hepatitis C scre ening. Due on due Goal Height. Due on d ue Goal HPV. Due on due Goal Update Social Hi story. Due on due Goal ALT (SGPT). Due on due Goal Creatinine. Due on due Goal PHQ-9. Due on du e Goal AST (SGOT). Due on due Goal MANAGER SALES SUPPORT Scanned. Due on due Goal OARS. Due on due Goal Unhealthy drug u se screening. Due on due Goal Review Allergy L ist. Due on due Goal Tobacco Use. Due on due Goal Height. Due on d ue Goal Order Annual PT. Due on due Goal UDT. Due on due Goal Medication Recon ciliation. Due on due Goal HPV. Due on due Goal Weight. Due on d ue Goal ORTHOTIC/PROSTHETIC PRACTITIONER Paperwork. Due on due Goal Update Social Hi story. Due on due Goal Hepatitis C scre ening. Due on due Goal Order Annual PT. Due on due Goal Creatinine. Due on due Goal OARS. Due on due Goal UDT. Due on due Goal MANAGER SALES SUPPORT Scanned. Due on 023 due Goal ALT (SGPT). Due on due Goal Hepatitis C scre ening. Due on due Goal AST (SGOT). Due on due Goal ORTHOTIC/PROSTHETIC PRACTITIONER Paperwork. Due on due Goal Height. Due on d ue Goal Medication Recon ciliation. Due on due Goal PHQ-9. Due on du e Goal Unhealthy drug u se screening. Due on due Goal Update Social Hi story. Due on due Goal HPV. Due on due Goal Weight. Due on d ue Goal Review Allergy L ist. Due on due Goal Tobacco Use. Due on due Goal Order Annual PT. Due on due Goal OARS. Due on due Goal Update Social Hi story. Due on due Goal AST (SGOT). Due on due Goal ORTHOTIC/PROSTHETIC PRACTITIONER Paperwork. Due on due Goal Creatinine. Due on due Goal MANAGER SALES SUPPORT Scanned. Due on due Goal ALT (SGPT). Due on due Goal PHQ-9. Due on du e Goal Weight. Due on d ue Goal UDT. Due on due Goal HPV. Due on due Goal Medication Recon ciliation. Due on due Goal Review Allergy L ist. Due on due Goal Tobacco Use. Due on due Goal Unhealthy drug u se screening. Due on due Goal Hepatitis C scre ening. Due on due Goal Height. Due on d ue Goal Creatinine. Due on due Goal UDT. Due on due Goal Order Annual PT. Due on due Goal OARS. Due on due Goal Review Allergy L ist. Due on due Goal Height. Due on d ue Goal AST (SGOT). Due on due Goal Hepatitis C scre ening. Due on due Goal ORTHOTIC/PROSTHETIC PRACTITIONER Paperwork. Due on due Goal Weight. Due on d ue Goal PHQ-9. Due on du e Goal Unhealthy drug u se screening. Due on due Goal Tobacco Use. Due on due Goal MANAGER SALES SUPPORT Scanned. Due on due Goal ALT (SGPT). Due on due Goal HPV. Due on due Goal Medication Recon ciliation. Due on due Goal Update Social Hi story. Due on due Goal UDT. Due on due Goal ALT (SGPT). Due on due Goal Unhealthy drug u se screening. Due on due Goal MANAGER SALES SUPPORT Scanned. Due on 022 due Goal Height. Due on d ue Goal Order Annual PT. Due on due Goal HPV. Due on due Goal Creatinine. Due on due Goal AST (SGOT). Due on due Goal ORTHOTIC/PROSTHETIC PRACTITIONER Paperwork. Due on due Goal Hepatitis C scre ening. Due on due Goal Update Social Hi story. Due on due Goal OARS. Due on due Goal Review Allergy L ist. Due on due Goal PHQ-9. Due on du e Goal Weight. Due on d ue Goal Medication Recon ciliation. Due on due Goal Tobacco Use. Due on due Goal Medication Recon ciliation. Due on due Goal Creatinine. Due on due Goal Update Social Hi story. Due on due Goal Order Annual PT. Due on due Goal Unhealthy drug u se screening. Due on due Goal HPV. Due on due Goal Weight. Due on d ue Goal OARS. Due on due Goal Tobacco Use. Due on due Goal Height. Due on d ue Goal ORTHOTIC/PROSTHETIC PRACTITIONER Paperwork. Due on due Goal AST (SGOT). Due on due Goal MANAGER SALES SUPPORT Scanned. Due on due Goal ALT (SGPT). Due on due Goal UDT. Due on due Goal Hepatitis C scre ening. Due on due Goal Review Allergy L ist. Due on due Goal PHQ-9. Due on du e Goal MANAGER SALES SUPPORT Scanned. Due on due Goal Order Annual PT. Due on due Goal ALT (SGPT). Due on due Goal UDT. Due on due Goal OARS. Due on due Goal AST (SGOT). Due on due Goal Creatinine. Due on due Goal ORTHOTIC/PROSTHETIC PRACTITIONER Paperwork. Due on due Goal Height. Due on d ue Goal Weight. Due on d ue Goal Review Allergy L ist. Due on due Goal HPV. Due on due Goal Tobacco Use. Due on due Goal Hepatitis C scre ening. Due on due Goal Medication Recon ciliation. Due on due Goal PHQ-9. Due on du e Goal Unhealthy drug u se screening. Due on due Goal Update Social Hi story. Due on due Goal Order Annual PT. Due on due Goal Tobacco Use. Due on due Goal ORTHOTIC/PROSTHETIC PRACTITIONER Paperwork. Due on due Goal UDT. Due on due Goal Unhealthy drug u se screening. Due on due Goal ALT (SGPT). Due on due Goal PHQ-9. Due on du e Goal Review Allergy L ist. Due on due Goal Height. Due on d ue Goal Hepatitis C scre ening. Due on due Goal MANAGER SALES SUPPORT Scanned. Due on due Goal Creatinine. Due on due Goal Weight. Due on d ue Goal HPV. Due on due Goal AST (SGOT). Due on due Goal Update Social Hi story. Due on due Goal OARS. Due on due Goal Medication Recon ciliation. Due on due Goal Unhealthy drug u se screening. Due on due Goal Order Annual PT. Due on due Goal Height. Due on d ue Goal MANAGER SALES SUPPORT Scanned. Due on due Goal Review Allergy L ist. Due on due Goal Creatinine. Due on due Goal OARS. Due on due Goal ALT (SGPT). Due on due Goal Medication Recon ciliation. Due on due Goal HPV. Due on due Goal UDT. Due on due Goal AST (SGOT). Due on due Goal ORTHOTIC/PROSTHETIC PRACTITIONER Paperwork. Due on due Goal Update Social Hi story. Due on due Goal Hepatitis C scre ening. Due on due Goal Tobacco Use. Due on due Goal Weight. Due on d ue Goal PHQ-9. Due on du e Goal AST (SGOT). Due on due Goal Order Annual PT. Due on due Goal Creatinine. Due on due Goal ALT (SGPT). Due on due Goal UDT. Due on due Goal Review Allergy L ist. Due on due Goal Tobacco Use. Due on due Goal OARS. Due on due Goal ALT (SGPT). Due on due Goal ORTHOTIC/PROSTHETIC PRACTITIONER Paperwork. Due on due Goal Hepatitis C scre ening. Due on due Goal PHQ-9. Due on du e Goal Creatinine. Due on due Goal Update Social Hi story. Due on due Goal Weight. Due on d ue Goal Medication Recon ciliation. Due on due Goal OARS. Due on due Goal UDT. Due on due Goal ORTHOTIC/PROSTHETIC PRACTITIONER Paperwork. Due on due Goal Unhealthy drug u se screening. Due on due Goal PHQ-9. Due on du e Goal MANAGER SALES SUPPORT Scanned. Due on due Goal Order Annual PT. Due on due Goal Unhealthy drug u se screening. Due on due Goal HPV. Due on due Goal MANAGER SALES SUPPORT Scanned. Due on due Goal AST (SGOT). Due on due Goal Height. Due on d ue Goal Hepatitis C scre ening. Due on due Goal Tobacco Use. Due on due Goal Weight. Due on d ue Goal Height. Due on d ue Goal Review Allergy L ist. Due on due Goal HPV. Due on due Goal Update Social Hi story. Due on due Goal Medication Recon ciliation. Due on due Goal UDT. Due on due Goal Update Social Hi story. Due on due Goal Weight. Due on d ue Goal Tobacco Use. Due on due Goal Medication Recon ciliation. Due on due Goal Hepatitis C scre ening. Due on due Goal AST (SGOT). Due on due Goal Creatinine. Due on due Goal PHQ-9. Due on du e Goal Unhealthy drug u se screening. Due on due Goal ALT (SGPT). Due on due Goal HPV. Due on due Goal Review Allergy L ist. Due on due Goal Height. Due on d ue Goal Order Annual PT. Due on due Goal ORTHOTIC/PROSTHETIC PRACTITIONER Paperwork. Due on due Goal OARS. Due on due Goal MANAGER SALES SUPPORT Scanned. Due on due Goal UDT. Due on due Goal Creatinine. Due on due Goal ALT (SGPT). Due on due Goal Order Annual PT. Due on due Goal Review Allergy L ist. Due on due Goal HPV. Due on due Goal AST (SGOT). Due on due Goal Medication Recon ciliation. Due on due Goal MANAGER SALES SUPPORT Scanned. Due on due Goal ORTHOTIC/PROSTHETIC PRACTITIONER Paperwork. Due on due Goal Unhealthy drug u se screening. Due on due Goal Weight. Due on d ue Goal PHQ-9. Due on du e Goal Height. Due on d ue Goal Hepatitis C scre ening. Due on due Goal OARS. Due on due Goal Update Social Hi story. Due on due Goal Tobacco Use. Due on due Goal PHQ-9. Due on du e Goal MANAGER SALES SUPPORT Scanned. Due on due Goal Medication Recon ciliation. Due on due Goal Hepatitis C scre ening. Due on due Goal UDT. Due on due Goal Unhealthy drug u se screening. Due on due Goal Weight. Due on d ue Goal Order Annual PT. Due on due Goal AST (SGOT). Due on due Goal OARS. Due on due Goal Height. Due on d ue Goal Tobacco Use. Due on due Goal Review Allergy L ist. Due on due Goal Update Social Hi story. Due on due Goal Creatinine. Due on due Goal ORTHOTIC/PROSTHETIC PRACTITIONER Paperwork. Due on due Goal HPV. Due on due Goal ALT (SGPT). Due on due Goal UDT. Due on due Goal Creatinine. Due on due Goal OARS. Due on due Goal MANAGER SALES SUPPORT Scanned. Due on due Goal Height. Due on d ue Goal Update Social Hi story. Due on due Goal Tobacco Use. Due on due Goal Medication Recon ciliation. Due on due Goal Weight. Due on d ue Goal Order Annual PT. Due on due Goal AST (SGOT). Due on due Goal Review Allergy L ist. Due on due Goal ALT (SGPT). Due on due Goal ORTHOTIC/PROSTHETIC PRACTITIONER Paperwork. Due on due Goal PHQ-9. Due on du e Referral Ordered: [facility], -Orthopedic Surgery (related to Carpal tunnel syndrome, right upper limb) ordered Referral Referred To: [facility], [address] [place], [address] [phone] Ordered: Referrals: Orthopedic Surgery. [facility], ordered Referral Ordered: [facility] -Orthopedic Surgery (related to Pain in left knee) ordered Referral Referred To: [facility] [address] [place], [place], [address] [phone] Ordered: Referrals: Orthopedic Surgery. [facility] ordered Referral Ordered: MRI LUMBAR SPINE W/O DYE Bilateral spine, lumbar ordered Referral Ordered: [facility] (related to Pain in left knee) ordered Referral Referred To: [facility] [address] [place], [place] [phone] Ordered: Referrals: [facility]. Location: [facility]. Evaluate and treat ordered Referral Ordered: Orthopedic Surgery (related to Pain in joint involving ankle and foot) ordered Referral Ordered: Referrals: Orthopedic Surgery. Location: [facility] ordered Referral Ordered: X-RAY EXAM OF KNEE, 3 Bilateral knee ordered Referral Ordered: X-RAY EXAM OF KNEE, 3 ordered Appointment Rory Ariadne BOOKED Future Order: Radiology Order MR Cervical WO ([id number]), Ordered on: Ordered Future Order: Radiology Order MR Lumbar WO (MLumSpwo), Ordered on: Ordered Future Order: Radiology Order MR I Cervical Spine W/O Dye (MRICERWO), Ordered on: Ordered Future Order: Radiology Order MR I Lumbar Spine W/O Dye (MRILSWO), Ordered on: Ordered Future Order: Radiology Order MR I Lumbar Spine W/O Dye (MRILSWO), Ordered on: Ordered Future Order: Lab Order Drug Elis t Def 22+ Classes (G0483), Ordered on: Ordered Future Order: Lab Order COMPLIAN CE DRUG ANALYSIS, URINE, WITH MED REPORT ([id number]), Ordered on: Ordered Future Order: Lab Order Drug Elis t Def 22+ Classes (G0483), Ordered on: Ordered Future Order: Lab Order COMPLIAN CE DRUG ANALYSIS, URINE, WITH MED REPORT ([id number]), Ordered on: Ordered Future Order: Lab Order COMPLIAN CE DRUG ANALYSIS, URINE, WITH MED REPORT ([id number]), Ordered on: Ordered Future Order: Lab Order COMPLIAN CE DRUG ANALYSIS, URINE, WITH MED REPORT ([id number]), Ordered on: Ordered History Of Present Illness Encounter Date Complaint History Of Prese nt Illness Comments: Ariadne presents in-clinic for follow up and medications refill. Reports current medication regimen provides 80% pain relief.Overall her chronic pain has been the same. S/p bariatric surgery on 11/15/22. Will follow up with cervical MRI and knee injections when recovered from surgery. 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 Back Pain Severity level i s 7. Duration: chronic. The problem is stable. Location of pain is lower back. Back Pain Severity level i s 5. Duration: chronic. The client describes the pain as an ache, burning, sharp and tingling. Symptoms are aggravated by ascending stairs, bending, descending stairs, lifting, lying/rest, sitting, standing, housework and prolonged positioning. Symptoms are relieved by heat, massage, pain meds/drugs, physical therapy, stretching, rest and changing positions. Comments: Ariadne presents in-clinic for follow up and medications refill.S/p L4-L5 TESI on 08/24/22. Patient reports 80% pain relief, however this has since worn off. She sprained her foot while at work. She is now weight bearing but she continues with pain in the left foot. She has not been able to complete her cervical MRI yet.Reports current medication regimen provides pain relief. Medications allow for increased functionality. Denies side effects from current medication regimen. Currently going through process for bariatric surgery, she has an appointment in three days at which time she expects to get her surgery date. 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 Comments: Ariadne presents for a virtual follow up and medications refill.S/p L4-L5 TESI on 08/24/22. Patient reports 75-80% pain relief. She sprained her foot while at work. She has been seen for this an directed to not be weight bearing. She has not been able to complete her cervical MRI yet. Reports current medication regimen provides pain relief. Medications allow for increased functionality. Denies side effects from current medication regimen. Currently going through process for bariatric surgery. 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 Back Pain Duration: chroni c. Back Pain Severity level i s 6. Duration: chronic. The problem is stable. Comments: Ariadne presents for a virtual follow up and medications refill regarding back pain. Prescribed medication offers 80% pain relief. Denies Bilateral knee, back, and carpel tunnel are intermittent and fluctuate - mostly stable over the past month. Typical flares with colder weather. Participates in HEP as able and utilizes heat with benefit. Actively in PT. 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 Back Pain Severity level i s 6. Duration: chronic. The problem is stable. Comments: Ariadne presents for a virtual follow up and medications refill regarding back pain. Prescribed medication offers 80% pain relief. Denies Bilateral knee, back, and carpel tunnel are intermittent and fluctuate - mostly stable over the past month. Typical flares with colder weather. Participates in HEP as able and utilizes heat with benefit. Actively in PT. Repeat lumbar RAFAT pending scheduling - hoping to complete this and cervical MRI next week. Repeat R knee joint injection on 06/21/22 with 80-90% relief. 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 Back Pain Severity level i s 3. Duration: chronic. The problem is worsening. It occurs intermittently. The client describes the pain as an ache, burning and sharp. Symptoms are aggravated by ascending stairs, bending, descending stairs, lying/rest, sitting, standing, walking, housework and prolonged positioning. Symptoms are relieved by heat, lying down, massage, pain meds/drugs, physical therapy, stretching, rest, sitting and changing positions. Comments: Ariadne presents for a follow up and medications refill regarding back pain. Prescribed medication offers 80% pain relief. Denies Bilateral knee, back, and carpel tunnel are intermittent and fluctuate - worse over the past month which she attributes to needing repeat injections. Typical flares with colder weather. Participates in HEP as able and utilizes heat with benefit. Repeat lumbar RAFAT pending scheduling. Also requesting repeat R knee joint injection as this has been more painful and swollen. Unable to complete her cervical MRI previously ordered d/t car troubles.No further questions or concerns. Back Pain Severity level i s 7. Duration: chronic. The problem is stable. Comments: Ariadne presents for a virtual follow up and medications refill regarding back pain. Prescribed medication offers 80% pain relief. Denies Still recovering from gall bladder surgery. Notes finding out she was but then having a miscarriage shortly after. Bilateral knee, back, and carpel tunnel have remained mostly stable over the past month. Typical flares with colder weather. Participates in HEP as able and utilizes heat with benefit. Requesting to repeat lumbar RAFAT and pursue cervical MRI at this time.No further questions or concerns. low back pain Onset: gradual w ithout injury. Severity level is moderate. Duration: chronic. The problem is fluctuating. It occurs intermittently. Location of pain is lower back, gluteal area, left flank, right flank and legs. Pain is radiated to the left thigh and right thigh. The client describes the pain as an ache and sharp. Symptoms are aggravated by daily activities, lifting, sitting, standing and walking. Symptoms are relieved by heat, ice, pain meds/drugs and rest. Comments: Here t kayley for a virtual visit for follow up evaluation and medication refill. Current pain medication regimen reduces Ariadne's back/neck/knee/carpal tunnel and widespread pain by over 50%. States that her back/neck/knee pain has been fairly stable this month. She had her gall bladder removed a few weeks ago and that surgery flared up her widespread pain. States that the lumbar RAFAT is wearing off and she will probably request this again at the next visit. She is holding on cervical imaging until she is recuperated from her surgery. She will resume PT once she recovers as well. She is on lifting restrictions and is slowly becoming more active. No other concerns today. Comments: Ariadne presents for a follow up and medications refill regarding back pain. Prescribed medication offers 80% pain relief. Denies SE.Reports she has been in and out of the hospital for gall bladder concerns. Removal scheduled for 04/14/22. Bilateral knee, back, and carpel tunnel have remained mostly stable over the past month. Typical flares with colder weather. Participates in HEP as able and utilizes heat with benefit. Expresses interest in repeating lumbar RAFAT if her pain were to worsen. Starting PT through [facility]. Also complaining of neck pain and down left arm. Would like to hold on imaging for cervical spine at this time.No further questions or concerns. Back Pain Severity level i s 3. Duration: chronic. The problem is stable. It occurs persistently. The client describes the pain as an ache, sharp and tingling. Symptoms are aggravated by lifting, lying/rest, sitting, standing and prolonged positioning. Symptoms are relieved by heat, lying down, massage, pain meds/drugs, physical therapy, stretching, rest and changing positions. Comments: Ariadne presents for a virtual follow up and medications refill regarding back pain. Prescribed medication offers 80% pain relief. Denies SE.Currently not feeling well. Bilateral knee, back, and carpel tunnel have remained mostly stable over the past month. Typical flares with colder weather. Participates in HEP as able and utilizes heat with benefit. Expresses interest in repeating lumbar RAFAT if her pain were to worsen.No further questions or concerns. Back Pain Severity level i s 7. Duration: chronic. The problem is stable. Widespread pain Pertinent negati ves include diarrhea, fatigue, fever and incontinence (urinary). Comments: Ariadne presents for a ROXANA follow up and medications refill regarding back pain. Prescribed medication offers 80% pain relief. Denies SE. Bilateral knee, back, and carpel tunnel have remained mostly stable over the past month. Typical flares with colder weather. Back Pain Severity level i s 7. Duration: chronic. The problem is stable. Comments: Ariadne presents for a virtual follow up and medications refill regarding back pain. Prescribed medication offers 80% pain relief. Denies SE.Bilateral knee, back, and carpel tunnel have remained mostly stable over the past month. Typical flares with colder weather. Ongoing benefit to back and leg pain with left L4-5 TESI on 09/28/21. Participates in HEP as able and utilizes heat with benefit. No further questions or concerns. Comments: Ariadne presents for a follow up and medications refill regarding back pain. Prescribed medication offers 80% pain relief. Denies SE.Bilateral knee, back, and carpel tunnel have remained mostly stable over the past month. Typical flares with colder weather. Ongoing benefit to back and leg pain with left L4-5 TESI on 09/28/21. Participates in HEP as able and utilizes heat with benefit. No further questions or concerns. Back Pain Severity level i s 4. Duration: chronic. The problem is stable. It occurs persistently. The client describes the pain as an ache, burning and tingling. Symptoms are aggravated by lifting, lying/rest, sitting, standing and prolonged positioning. Symptoms are relieved by heat, lying down, massage, pain meds/drugs, physical therapy, stretching, rest and changing positions. Back Pain Severity level i s 5. Duration: chronic. The problem is stable. Comments: Ariadne presents for a virtual follow up and medications refill regarding back pain. Prescribed medication offers 80% pain relief. Denies SE.Bilateral knee, back, and carpel tunnel have remained mostly stable. Typical flares with colder weather. Improvement to back and leg pain with left L4-5 TESI on 09/28/21 which has offered 70% relief. Participates in HEP as able and utilizes heat with benefit. No further questions or concerns. Back Pain Severity level i s 8. Duration: chronic. The problem is stable. It occurs intermittently. The client describes the pain as an ache, burning, numbness, sharp and tingling. Symptoms are aggravated by bending, lifting, sitting, standing, housework and prolonged positioning. Symptoms are relieved by heat, ice, lying down, massage, pain meds/drugs, physical therapy, stretching, rest, chiropractic and changing positions. Comments: Ariadne presents for a virtual follow up and medications refill regarding back pain. Prescribed medication offers 80% pain relief. Denies SE.Bilateral knee, back, and carpel tunnel have remained mostly stable. Typical flares with colder weather. Back and leg pain have continued to be worse. Unable to complete repeat RAFAT d/t stressors of her daughter being in the hospital and her grandmother passing away. Planning to reschedule when able. Participates in HEP as able and utilizes heat with benefit. No further questions or concerns Back Pain Severity level i s 2. Duration: chronic. The problem is stable. It occurs intermittently. The client describes the pain as an ache and sharp. Symptoms are aggravated by bending, lifting, sitting, standing and prolonged positioning. Symptoms are relieved by heat, lying down, massage, pain meds/drugs, physical therapy, stretching, rest and changing positions. Comments: Ariadne presents for a follow up and medications refill regarding back pain. Prescribed medication offers 80% pain relief. Denies SE.Bilateral knee, back, and carpel tunnel have remained mostly stable. More sore currently which she attributes to working more. Typical flares with colder weather. Back and leg pain have been more sore which she attributes to needing repeat RAFAT. Still planning to schedule this in the near future pending transportation. Participates in HEP as able and utilizes heat with benefit. No further questions or concerns Back Pain Severity level i s 7. Duration: chronic. The problem is fluctuating. It occurs intermittently. The client describes the pain as an ache and burning. Symptoms are aggravated by lifting, sitting, standing and prolonged positioning. Symptoms are relieved by heat, lying down, massage, pain meds/drugs, physical therapy, stretching, rest and changing positions. Comments: Ariadne presents for a virtual follow up and medications refill regarding back pain. Prescribed medication offers 80% pain relief. Denies SE.Currently not feeling well d/t COVID-19. Also notes when she went in for this, she was advised gall bladder would need to be removed. Bilateral knee, back, and carpel tunnel have remained mostly stable. Typical flares with colder weather. Back and leg pain have been more sore which she attributes to needing repeat RAFAT. Still planning to schedule this in the near future. Participates in HEP as able and utilizes heat with benefit. No further questions or concerns Back Pain Severity level i s 7. Duration: chronic. The problem is stable. It occurs intermittently. The client describes the pain as an ache, burning and sharp. Symptoms are aggravated by bending, lifting, lying/rest, sitting, standing, movement and housework. Symptoms are relieved by heat, lying down, massage, pain meds/drugs, stretching and changing positions. Comments: Ariadne presents for a virtual follow up and medications refill regarding back pain. Prescribed medication offers 80% pain relief. Denies SE.Bilateral knee, back, and carpel tunnel have remained mostly stable. Typical flares with colder weather. Back and leg pain have been more sore which she attributes to needing repeat RAFAT. States she now has a ride and will scheduled this in the near future. 85% relief from R knee joint injection on 06/03. Participates in HEP as able and utilizes heat with benefit. No further questions or concerns Back Pain Severity level i s 7. Duration: chronic. The problem is stable. It occurs intermittently. The client describes the pain as an ache and burning. Symptoms are aggravated by bending, lifting, lying/rest, movement and housework. Symptoms are relieved by heat and lying down. Comments: Ariadne presents for a virtual follow up and medications refill regarding back pain. Prescribed medication offers 80% pain relief. Denies SE.Bilateral knee, back, and carpel tunnel have remained mostly stable. Improvement noted as she has not been working. Typical flares with colder weather. Remains interested in repeat lumbar RAFAT once she is able to find a ride - likely next week. Primary c/o increased R knee pain. Past relief with injections. Participates in HEP as able and utilizes heat with benefit. No further questions or concerns Back Pain Severity level i s 2. Duration: chronic. The problem is stable. It occurs intermittently. The patient describes the pain as an ache, burning and sharp. Symptoms are aggravated by ascending stairs, bending, descending stairs, lifting, lying/rest, standing, housework, movement and prolonged positioning. Symptoms are relieved by heat, ice, lying down, massage, pain meds/drugs, physical therapy, stretching, rest, changing positions and standing. Back Pain (comments) Ariadne pres ents for a follow up and medications refill regarding back pain. Last seen 05/13/20. Prescribed medication offers 80% pain relief. Denies SE.Currently in the process of moving to [place] and would like [facility] to resume management of care. Bilateral knee, and carpel tunnel have remained mostly stable. Typical flares with colder weather. Back pain is of primary concern. Requesting to repeat lumbar RAFAT as soon as possible. Participates in HEP as able and utilizes heat with benefit. No further questions or concerns. Back Pain (comments) Ariadne cash for a virtual follow up and medications refill.Bilateral knee, and carpel tunnel have been stable over the past month. Typical flares with colder weather. Back pain continues to be more bothersome. Planning to schedule lumbar RAFAT in the near future. Participates in HEP as able and utilizes heat with benefit. No further questions or concerns. Back Pain Severity level i s 4. Duration: chronic. The problem is stable. It occurs intermittently. The patient describes the pain as an ache, burning, sharp and tingling. Symptoms are aggravated by ascending stairs, descending stairs, lifting, lying/rest, sitting, standing, housework and prolonged positioning. Symptoms are relieved by ice, lying down, massage, pain meds/drugs, physical therapy, stretching, rest, chiropractic and changing positions. Back Pain (comments) Ariadne cash for a virtual follow up and medications refill. Prescribed medication offers 80% pain relief. Denies SE.Bilateral knee, and carpel tunnel have been stable over the past month. Typical flares with colder weather. Back pain has been more bothersome recently. Requesting repeat RAFAT at this time. Participates in HEP as able and utilizes heat with benefit. No further questions or concerns. Back Pain Severity level i s 8. Duration: chronic. The problem is stable. It occurs intermittently. The patient describes the pain as an ache, burning, numbness, sharp and tingling. Symptoms are aggravated by ascending stairs, descending stairs, lifting, lying/rest, sitting, standing, housework and prolonged positioning. Symptoms are relieved by heat, lying down, massage, pain meds/drugs, physical therapy, stretching, rest and changing positions. Back Pain (comments) Ariadne cash for a virtual follow up and medications refill. Prescribed medication offers 80% pain relief. Denies SE.Back, bilateral knee, and carpel tunnel have been stable over the past month. Recent flare and current soreness from falling down the stairs and colder weather. Participates in HEP as able and utilizes heat with benefit. No further questions or concerns. Back Pain Severity level i s 6. Duration: chronic. The problem is stable. It occurs persistently. The patient describes the pain as an ache, burning, numbness and tingling. Symptoms are aggravated by lifting, sitting, standing, housework, movement and prolonged positioning. Symptoms are relieved by heat, lying down, massage, pain meds/drugs, physical therapy, stretching and rest. Back Pain (comments) Ariadne cash for a virtual follow up and medications refill. Prescribed medication offers 80% pain relief. Denies SE.Back, bilateral knee, and carpel tunnel have been stable over the past month. Ongoing relief with most recent lumbar RAFAT. Participates in HEP as able and utilizes heat with benefit. No further questions or concerns. Back Pain Severity level i s 4. Duration: chronic. The problem is stable. It occurs intermittently. The patient describes the pain as an ache, burning, numbness, sharp and tingling. Symptoms are aggravated by lifting, sitting, standing, housework and prolonged positioning. Symptoms are relieved by heat, massage, pain meds/drugs, physical therapy, stretching, rest and changing positions. Back Pain (comments) Ariadne cash for a virtual follow up and medications refill. Prescribed medication offers 80% pain relief. Denies SE.Reports lumbar RAFAT on 12/24 has offered 60-70% pain relief. Back, bilateral knee, and carpel tunnel have been stable over the past month. Participates in HEP as able and utilizes heat with benefit. No further questions or concerns. Back Pain Severity level i s 6. Duration: chronic. The problem is stable. It occurs intermittently. The patient describes the pain as an ache, burning, numbness, sharp and tingling. Symptoms are aggravated by bending, lifting, sitting, standing, housework and prolonged positioning. Symptoms are relieved by heat, massage, pain meds/drugs, physical therapy, stretching, rest, chiropractic and changing positions. Back Pain (comments) Ariadne cash for a virtual follow up and medications refill. Prescribed medication offers 80% pain relief. Denies SE.Reports she has not scheduled lumbar RAFAT as she was advised [facility] did not have an order. Back and bilateral knee pain continue to be more worse over the past month. Carpel tunnel is stable. Participates in HEP as able and utilizes heat with benefit. No further questions or concerns. Back Pain Severity level i s 8. Duration: chronic. The problem is worsening. It occurs intermittently. The patient describes the pain as an ache, burning, numbness, sharp and tingling. Symptoms are aggravated by bending, lifting, lying/rest, standing, housework, movement and prolonged positioning. Symptoms are relieved by heat, massage, pain meds/drugs, physical therapy, stretching, rest and changing positions. Back Pain (comments) Ariadne cash for a virtual follow up and medications refill. Prescribed medication offers 80% pain relief. Denies SE.Back pain continues to be worse. Expresses interest to schedule lumbar RAFAT previously ordered for next week. Bilateral knee pain more bothersome d/t weather changes and worsening back pain. Carpel tunnel syndrome has remained stable. Migraines occur a few times per month. Managed with Sumatriptan and sleep. Participates in regular HEP. No further questions or concerns. Back Pain Severity level i s 8. Duration: chronic. The problem is worsening. It occurs persistently. The patient describes the pain as an ache, burning, numbness and sharp. Symptoms are aggravated by bending, lifting, standing and prolonged positioning. Symptoms are relieved by heat, lying down, massage, pain meds/drugs, physical therapy, stretching, rest and changing positions. Back Pain Severity level i s 7. Duration: chronic. The problem is worsening. It occurs persistently. The patient describes the pain as an ache, burning, numbness, sharp and numbness. Symptoms are aggravated by ascending stairs, descending stairs, lifting, sitting, standing, housework and prolonged positioning. Symptoms are relieved by heat, lying down, massage, pain meds/drugs, physical therapy, stretching, rest and changing positions. Back Pain (comments) Ariadne cash for a virtual follow up and medications refill. Prescribed medication offers 80% pain relief. Denies SE.Back pain continues to be worse. Notes that she contracted Norovirus when traveling to the [facility] for RAFAT. She has been experiencing more clicking in her knees and muscle spasms, however pain is stable overall. Ongoing methocarbamol use with benefit. Carpel tunnel also stable. Participates in HEP as able. No further questions or concerns. Back Pain Severity level i s 10. Duration: chronic. The problem is worsening. It occurs persistently. The patient describes the pain as an ache, burning, numbness, sharp and tingling. Symptoms are aggravated by ascending stairs, descending stairs, lifting, sitting, standing, housework, movement and prolonged positioning. Symptoms are relieved by heat, massage, pain meds/drugs, physical therapy, stretching and rest. Back Pain (comments) Ariadne cash for a virtual follow up and medications refill. Prescribed medication offers 80% pain relief. Denies SE.She has not been seen since 06/07/2019 and presents to reestablish care with [facility] as she will be moving back to the [facility]. Back pain has been worse recently and she expresses interest to repeat lumbar RFAAT. Bilateral knee and carpel tunnel pain has remained stable. Participates in HEP as able. No further questions or concerns. Back Pain (comments) Ariadne cash for a virtual follow up and medications refill for her back pain which she reports to be stable overall. She continues to note of intermittent radicular pain down her legs. States that her most recent LESI, done on 04/09/19, has been providing her with approx. 80% relief. States that her pain has been better since she has been off work as of recently.Reports current medication regimen provides 50+% pain relief and allows for increased functionality. Denies side effects from current medication regimen. Back Pain Duration: chroni c. The problem is stable. It occurs persistently. Location of pain is lower back. Pain is radiated to the BLEs.The patient describes the pain as an ache, burning and sharp. Symptoms are aggravated by ascending stairs, daily activities, descending stairs, lifting and standing. Symptoms are relieved by heat, ice, pain meds/drugs, rest and changing positions. Back Pain (comments) Ariadne is h ere for follow up and medications refill for her back pain which has been worse with radicular pain down her L leg. She is scheduled for her LESI after her OV today. States that she has been working more and the physical demands aggravates her overall pain. She is also interested in restarting PT. Reports current medication regimen provides 50+% pain relief and allows for increased functionality. Denies side effects from current medication regimen.No other concerns today. Back Pain Duration: chroni c. The problem is fluctuating. It occurs persistently. Location of pain is lower back.The patient describes the pain as an ache. Symptoms are aggravated by ascending stairs, daily activities, descending stairs and standing. Symptoms are relieved by massage, pain meds/drugs and rest. Back Pain (comments) Patient is here for follow up and medications refill. Reports current medication regimen provides 80% pain relief and allows for increased functionality. Denies side effects from current medication regimen. Patient's pain is persistent and chronic. Notes BL tingling in her hands. C/o increasing radicular symptoms from her back into her L LE. No other concerns today. Back Pain Severity level i s 3. Duration: chronic. The problem is worsening. It occurs persistently. Location of pain is upper back, middle back, lower back, BL shoulders and BL hands. Pain is radiated to the left thigh.The patient describes the pain as an ache, burning, sharp and tingling. Symptoms are aggravated by ascending stairs, bending, descending stairs, lifting, lying/rest, running, standing, walking and housework. Symptoms are relieved by heat, lying down, massage, pain meds/drugs, physical therapy, stretching and rest. Back Pain (comments) Ariadne is h ere for follow up and medications refill for her c/c of back pain which has been stable overall. Her LESI is scheduled today after her OV. Declines additional PT orders at this time and continues to participate in her exercises on her own. Says she has started working again. Presents with #1 Percocet - on track. Reports current medication regimen provides 85% pain relief and allows for increased functionality. Denies side effects from current medication regimen.No other concerns today. Back Pain Severity level i s 2. Duration: chronic. The problem is stable. It occurs persistently. Location of pain is middle back and lower back. Pain is radiated to the left thigh.The patient describes the pain as an ache, burning and tingling. Symptoms are aggravated by ascending stairs, daily activities, descending stairs, sitting and standing. Symptoms are relieved by heat, massage, pain meds/drugs, physical therapy and rest. Back Pain (comments) Ariadne is h ere for follow up and medications refill for her c/c back and L knee pain which has been . States she has been unable to schedule her LESI since her last OV, but plans on scheduling for next month. Presents with #1 Percocet - on track. Reports current medication regimen provides 50% pain relief and allows for increased functionality. Denies side effects from current medication regimen.No other concerns today. Back Pain Severity level i s 2. Duration: chronic. The problem is fluctuating. It occurs persistently. Location of pain is lower back. Pain is radiated to the left thigh.The patient describes the pain as an ache, sharp and tingling. Symptoms are aggravated by ascending stairs, changing positions, daily activities, lying/rest and standing. Symptoms are relieved by heat, lying down, massage, pain meds/drugs, physical therapy and rest. Back Pain Severity level i s 3. Duration: chronic. The problem is stable. It occurs occasionally. Location of pain is upper back, middle back, lower back, neck and L knee. Pain is radiated to the BL hands.The patient describes the pain as an ache, sharp and tingling. Symptoms are aggravated by ascending stairs, bending, descending stairs, lifting, lying/rest, sitting, standing, walking, housework, movement and prolonged positioning. Symptoms are relieved by heat, lying down, massage, pain meds/drugs, physical therapy, stretching, rest, changing positions and hot bath. Back Pain (comments) Ariadne is h ere for follow up and medications refill. Pain is stable in her back and L knee. Inquires about repeat LESI. Of note, patient is moving to [place] today -- will continue to come to [facility]. Presents with #6 Percocet -- on track. Reports current medication regimen provides >50% pain relief. Denies side effects from current medication regimen. Prescribed medications continue to be helpful for pain relief. Back Pain Severity level i s 2. Duration: chronic. The problem is stable. It occurs intermittently. Location of pain is upper back, middle back, lower back and neck. Pain is radiated to the left calf, right calf, left thigh and right thigh.The patient describes the pain as an ache, burning and sharp. Symptoms are aggravated by all activities. Symptoms are relieved by heat, lying down, massage, pain meds/drugs, physical therapy, stretching and changing positions. Back Pain (comments) Ariadne is h ere for follow up and medications refill. She is with her daughter today. Presents with #6 percocet-- on track. Reports current medication regimen provides 90% pain relief. Denies side effects from current medication regimen. Pain is stable. LESI continues to provide significant pain relief. Has not yet started PT as she has been busy moving to new home. Currently applying to new jobs-- has interview later today. No other concerns. Back Pain (comments) Ariadne is h ere for follow up and medications refill. She reports of her back pain to have been stable overall. She does notes of increased stressors which has been causing an increase in her depression. Most recent LESI (04/21/18) has provided her with approx. 80% relief. She also continues to note of instability on her L knee and requesting for a referral to see a knee specialist. Presents with no medications- out. Reports current medication regimen provides 50% pain relief and allows for increased functionality. Denies side effects from current medication regimen.No other concerns today. Back Pain Severity level i s 4. Duration: chronic. The problem is stable. It occurs persistently. Location of pain is lower back and l knee.The patient describes the pain as an ache and sharp. Symptoms are aggravated by ascending stairs, daily activities, descending stairs, twisting and walking. Symptoms are relieved by heat, pain meds/drugs and stretching. low back pain (comments) Patient is here for a f/u. Has #0 Percocet remaining - was told to make later appointment. Medications are effective at relieving pain without SE. Ariadne's pain has been stable since last visit. Ariadne has been doing well with no major issues to address. She would like an RAFAT order for her low back. She continues to exercise and stretch for pain relief. She is not interested in any other procedures at the moment. PT-N/AESI-Ordered for low back RF-not tried SCS-not tried Meds: Opioids-Currrently takes Percocet Neuropathics-Currently takes gabapentin Muscle Relaxant- Currently takes Robaxin Pxzf-Okguewlhpxhhsg-B/AMedical Cannabis-N/A low back pain Severity level i s 3. Duration: chronic. The problem is worsening. It occurs persistently. Location of pain is lower back.The patient describes the pain as an ache, burning, sharp and tingling. Symptoms are aggravated by ascending stairs, bending, descending stairs, sitting, standing, walking and prolonged positioning. Symptoms are relieved by heat, lying down, over the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 moderate. Duration: chronic. The problem is fluctuating. It occurs intermittently. Location of pain is lower back, gluteal area, left flank and right flank. Pain is radiated to the left thigh and right thigh.The patient describes the pain as an ache, burning and sharp. Symptoms are aggravated by daily activities, sitting, standing and walking. Symptoms are relieved by heat and pain meds/drugs. Back Pain Onset: gradual w ithout injury. Severity level is moderate. Duration: chronic. Location of pain is lower back, gluteal area, left flank and right flank. Pain is radiated to the left thigh and right thigh.The patient describes the pain as an ache and sharp. Symptoms are aggravated by daily activities, sitting, standing and walking. Symptoms are relieved by pain meds/drugs. Back Pain (comments) Here today for follow up evaluation and medication refill. continues home exercises. Lost her job because she was charged with a felony when she had a fight with her ex 's girlfriend. She has to spend 40 days in long-term starting on 01/29 but can leave to go to appointments and to look for a job. No other concerns today. Functional Status Date Functional Assessmen t No Information Instructions Date Instruction Additional Infor mation Continue current medication Reviewed medications Follow exercise program Activity as tolerated Reviewed medications Continue current medication Medications counted, patient is on track. Medications counted, patient is on track. Change medication Continue current medication Reviewed medications Activity as tolerated Continue current medication Reviewed medications Activity as tolerated Medications counted, patient has self-escalated dose. Continue current medication Medications counted, patient is on track. Reviewed medications Activity as tolerated Continue current medication Reviewed medications Medications counted, patient is on track. Reviewed medications Continue current medication Follow exercise program New medication is prescribed Continue current medication Reviewed medications Follow exercise program Continue current medication Reviewed medications Follow exercise program Reviewed medications Continue current medication Continue current medication Reviewed medications New medication is prescribed Follow exercise program Continue current medication Reviewed medications Follow exercise program Change medication Continue current medication Reviewed medications Follow exercise program Continue current medication Reviewed medications Follow exercise program Depression Screen Continue current medication New medication is prescribed Follow exercise program Oswestry Score Assessments Type Assessment Date assessment Depression impression No new concerns. Not discussed at today's office visitForwarded history: Pt not currently following with psych regarding anxiety and depression which was encouraged today once she is back and settled in the [facility] assessment Anxiety impression No new concerns. Not discussed at today's office visitForwarded history: Pt not currently following with psych regarding anxiety and depression which was encouraged today once she is back and settled in the [facility] assessment Chronic migraine wit hout aura, intractable, without status migrainosus impression Not of concern today .Forwarded history: History of migraines. Managed with SumatriptanMigraine pain reduced with current pain medication regimen.Previous review of records from 2019 from [facility] reviewing her history and treatment of migraines assessment Carpal tunnel syndrome, right up per limb impression BL hand pain remains stable over all. No new concerns today assessment Carpal tunnel syndrome, left upp er limb impression BL hand pain remains stable over all. No new concerns today assessment Pain in right knee impression R knee pain has been worse this past month. Forwarded history: R knee injection on 06/03/21 with 85% pain relief. Repeat on 06/21/22 with 80-90% relief assessment Pain in left knee impression Chronic bilateral kn ee pain overall stable today. Forwarded history: H/o surgery to L knee. Unable to pursue injections d/t hardware.Knee pain reduced with ice/elevation and current pain medication regimen.- Previous review of knee images which display degenerative issues records from 2019 from [facility] and from 2013 from [facility] which assess her knee pain assessment Other intervertebral disc degene ration, lumbar region impression Back pain currently stable. Radicular symptoms noted down her BLEs. Axial lumbar pain also present. Forwarded history: Multilevel degenerative changes seen per previously reviewed 2019 MRI. Lumbar MRI (02/2018) shows early DDD at L2-3 and L5-S1. Last RAFAT 04/09 provided about 80% - repeat completed 12/24 with 60-70% pain relief. Left L4-5 TFESI on 09/28/21 with 70% relief. S/p L4-L5 TESI on 08/24/22. Patient reports 75-80% pain relief, however notes under 2 months of good relief. Lumbar pain reduced with injections, home PT exercises and current pain medication regimen.Previous review of records from 2019 from [facility] and from 2013 from [facility] which assess her lumbar pain assessment Radiculopathy, lumbar region Nov impression Back pain with radicular symptom s into lower extremities. assessment Cervicalgia impression History of neck pain . 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 Encouraged patient to participate in alternative therapies, conservative measures, and follow a healthy lifestyle.Forwarded history: Last UDT results previously reviewed and appropriate. MNPMP queried and does not show any Rx from outside providers. Not on medical cannabis. MME at 45. Will try to get TENs unit for back pain through PT in future. PT winter 2021. Also PT with Jimmy Wyatt in [place] winter and spring/summer 2022. Request of records from [facility].Current treatment plan including injections, home PT exercises and pain medication regimen allows patient to perform daily activities and enhances her quality of life.The current chronic pain treatment plan including assessment of need for physical therapy, pain psychology, pain medications, referrals to other specialists, injections, spinal cord stimulation, and medical cannabis has decreased patient's chronic pain level and has enhanced the patient's quality of life assessment Other chronic pain impression Ariadne is a 37 yo wh o presents to the clinic for evaluation and management of chronic back pain. Has been managed on gabapentin, methocarbamol, tizanidine, [place], and oxycodone.MNPMP queried and is consistent with the patient's medication history. Criminal background check showed no concerning convictions Mental Status Date Cognitive Assessment Orientation - Viola ed to time, place, person, situation. Patient Care Teams Name Effective Dates (start - stop) Status Members No Information
--- OUTSIDE RECORDS SUMMARY | 2022-12-07 18:43 | XMS_ITS | Continuity of Care Document ---
Author Name Unknown Organization [facility] Address [address] [place] [id number] Care Team Providers Care Gift Basket Packer Name Role Phone [facility] Unavailable Unav ailable Procedures Procedure Date INJ FORAMEN EPIDURAL L/S MAJOR JOINT OR BURSA INJ WITH ULTRASOUND INJ FORAMEN EPIDURAL L/S INJ FORAMEN EPIDURAL L/S INJ FORAMEN EPIDURAL L/S INJ FORAMEN EPIDURAL L/S Advance Directives Directive Yes / No Effective Date File Name No Information Encounters Encounter Description Practice Location Reason(s) For Visit Diagnoses Date Provider Providers Copied on Encounter [facility], [address] [place] [address], [id number], [facility] No Information [facility]. [address] [place] [address], [id number], [place]. tel:[phone] Referring Provider: Joanie Tobar, [address] [place] [address], [id number]. tel:[phone] [facility], [address] [place] [address], [id number], [facility] No Information [facility]. [address] [place] [address], [id number], [place]. tel:[phone] Referring Provider: Joanie Tobar, [address] [place] [address], [id number]. tel:[phone] [facility], [address] [place] [address], [id number], [facility] No Information [facility]. [address] [place] [address] [place], [id number], . tel:[phone] Referring Provider: Joanie Tobar, [address] [place] [address], [id number]. tel:[phone] [place] [address], [address] [place] [address], [id number], [facility] No Information [facility]. [address] [place], [place] [address], [id number], . tel:[phone] Referring Provider: Joanie Tobar, [address] [place] [address], [id number]. tel:[phone] [facility], [address] [place] [address], [id number], [facility] No Information [facility]. [address] [place], [place] [address], [id number], [place]. tel:[phone] Referring Provider: Arlene Cantrell, [address] [place] [address], [id number]. tel:[phone] [facility], [address] [place] [address], [id number], [facility] No Information [facility]. [address] [place], [place] [address] [place], [id number], [place]. tel:[phone] Referring Provider: Arlene Cantrell, [address] [place] [address], [id number]. tel:[phone] Family History Family Member Type Diagnosis Age At Onset No Information Payers Payer name Insurance type Covered constitution party ID Alvina ridley(s) [facility] [id number] Social History Type Description Quantity Date Captured [...]
--- OUTSIDE RECORDS SUMMARY | 2022-12-07 18:43 | XMS_ITS | Continuity of Care Document ---
Author Name Unknown Organization [facility] enter Address [address] [place] [id number] Phone Care Team Providers Care Hog Handler Name Role Phone [facility] Unavailable Unava ilable Procedures Procedure Date MAJOR JOINT OR BURSA INJ WITH ULTRASOUND Advance Directives Directive Yes / No Effective Date File Name No Information Encounters Encounter Description Practice Location Reason(s) For Visit Diagnoses Date Provider Providers Copied on Encounter [facility], [address] [place] [address], [id number], [place] tel:[phone] [facility] No Information 2 [facility]. [address] [place] [address], [id number], [place]. tel:[phone] Referring Provider: Arlene Cantrell, [address] [place], [id number] . tel:[phone] Family History Family Member Type Diagnosis Age At Onset No Information Payers Payer name Insurance type Covered green party ID Authoramya khai(s) monie [facility] [id number] Social History Type Description Quantity Date Captured [...]
[2022-12-07] MEDS: 0.9 % SODIUM CHLORIDE 1000 ml 1,000 ML IV (19:00)
[2022-12-07] MEDS: MORPHINE 4 MG/ML INJ IVP (19:00)
[2022-12-07] MEDS: KETOROLAC 15 MG/ML inj IVP (19:00)
[2022-12-07 19:03] LABS: Lactate* 0.9 mmol/L (0.5-1.9)
[2022-12-07 19:04] LABS: Basophils Absolute Auto 0.03 K/uL (0.00-0.30); Basophils Percent Auto 0.5 % (0.0-3.0); Eosinophils Absolute Auto 0.03 K/uL (0.00-0.50); Eosinophils Percent Auto 0.5 % (0.0-7.0); Hematocrit 46.4 % (33.0-51.0); Hemoglobin* 15.3 gm/dL (12.0-16.0); Lymphocytes Absolute Auto 1.96 K/uL (0.90-2.90); Lymphocytes Percent Auto 32.8 % (20-44); Mean Corpuscular HGB Conc 33 gm/dL (32-36); Mean Corpuscular Hemoglobin 26 pg (26-34); Mean Corpuscular Volume 79 fL (80-100); Monocytes Percent Auto 6.7 % (0.0-11.0); Neutrophils Absolute Auto 3.55 K/uL (1.7-7.0); Neutrophils Percent Auto 59.5 % (42.0-72.0); Platelet Count* 269 K/uL (140-440); RDW Coefficient of Variation % 13.8 % (11.5-15.5); Red Blood Count 5.86 m/uL (4.00-5.20); White Blood Count* 5.97 K/uL (4.50-11.00)
[2022-12-07 19:05] LABS: Slide Review Reflex No
[2022-12-07 19:18] LABS: Albumin* 4.9 g/dL (3.3-5.0); Chloride* 106 mmol/L (96-114); Sodium* 140 mmol/L (135-149)
[2022-12-07 19:21] LABS: Alanine Aminotransferase* 118 U/L (4-35); Alkaline Phosphatase* 98 U/L (40-150); Anion Gap 18 mEq/L (7-15); Aspartate Amino Transferase* 90 U/L (12-35); Bilirubin Total* 0.8 mg/dL (0.1-1.5); Blood Urea Nitrogen* 6 mg/dL (5-24); Carbon Dioxide* 16 mmol/L (20-32); Creatinine* 0.6 mg/dL (0.5-1.5); Est. Creatinine Clearance* 110.86; Estimated Glomerular Filt Rate 118 ml/min; Glucose* 74 mg/dL (60-115); Total Protein* 8.7 g/dL (6.0-8.3)
[2022-12-07 19:22] LABS: Calcium* 9.3 mg/dL (8.4-10.6)
[2022-12-07] MEDS: POTASSIUM BICARB 25 MEQ EFFERVESCENT TAB PO (20:01)
== END 2022-12-07 20:17 | disposition home or self-care (01) ==
PROVIDERS: Emergency Provider Family Medicine
DX: K95.89 Other complications of other bariatric procedure (principal); E86.0 Dehydration; E87.6 Hypokalemia
CPT/HCPCS: 36415; 80053; 83605; 85025; 94761; 96361; 96374; 96375; 99283; 99284; A9270; J1885; J2270; J7030